=== PATIENT | male | born 1940 | race Caucasian/White ===

== ENCOUNTER 2019-11-19 21:42 | Inpatient (IN) | payer MEDICARE ==
[~2019-11-19] VITALS: Ht 182.9 cm; Wt 117.2 kg
[2019-11-19 22:00] VITALS: BP 163/98
[2019-11-19] MEDS: AMIODARONE 450 MG in IV DEXTROSE 5% 250 ML IV PRN (22:27)
--- NOTE | 2019-11-19 22:30 | NUR ---
Patient arrived to room approx 2145, Patient walked to bed from EMS [facility]. Patient AOX4, able to orient to room and call light. Patient brought home meds with, meds reconciled by auditor in charge and sent down to pharmacy. Home meds restarted per Dr. Lopez. Patient able to answer admission questions Loading dose of amiodarone given at [facility], orders given to this RN from Dr. Garcia to continue amiodarone infusion per protocol. Patient to also be NPO at midnight. Patient agrees with plan of care. Will continue to monitor.
[2019-11-19] MEDS ORDERED: TAMS0.4C97 PO (23:03)
[2019-11-19] MEDS ORDERED: ATOR20TA58 PO (23:03)
[2019-11-19] MEDS ORDERED: POTA10TA12 PO (23:03)
[2019-11-19] MEDS ORDERED: SITA50TA PO (23:03)
[2019-11-19] MEDS ORDERED: AMLO10TA8 PO (23:03)
[2019-11-19] MEDS ORDERED: LISI1TAB20 PO (23:03)
[2019-11-19] MEDS ORDERED: METF10007 PO (23:03)
[2019-11-20] VITALS (13 sets, daily range): BP systolic 113–166; BP diastolic 69–97
[2019-11-20 03:54] LABS: BASO % 1 % (0-3); EOS # 0.2 x10^3/uL (0.0-0.7); EOS % 3 % (0-3); HEMATOCRIT 38.9 % (39.0-53.0); HEMOGLOBIN 13.4 g/dL (13.0-17.5); LYMPH # 2.2 x10^3/uL (1.0-4.8); LYMPH % 28 % (24-48); MEAN CORPUSCULAR HEMOGLOBIN 31 pg (25-35); MEAN CORPUSCULAR HGB CONC 34 g/dL (31-37); MEAN CORPUSCULAR VOLUME 90 fL (79-100); MONO # 0.6 x10^3/uL (0.0-1.1); MONO % 8 % (0-9); NEUT # 4.8 x10^3/uL (1.8-7.7); NEUT % 62 % (31-73); PLATELET COUNT 223 x10^3/uL (140-400); RED BLOOD COUNT 4.33 x10^6/uL (4.30-5.70); RED CELL DISTRIBUTION WIDTH 14.3 % (11.5-14.5); WHITE BLOOD COUNT 7.8 x10^3/uL (4.0-11.0)
[2019-11-20 05:00] LABS: ALBUMIN 3.3 g/dL (3.4-5.0); CALCIUM 8.4 mg/dL (8.5-10.1); GFR 72.5; MAGNESIUM 1.5 mg/dL (1.8-2.4); POTASSIUM 3.4 mmol/L (3.5-5.1); TOTAL BILIRUBIN 0.9 mg/dL (0.2-1.0); TOTAL PROTEIN 6.5 g/dL (6.4-8.2)
[2019-11-20] MEDS ORDERED: HEPARIN for IV BOLUS 10,000 UNIT/10 ML VIAL. IV PRN (05:30)
[2019-11-20] MEDS ORDERED: HEPARIN 25,000UTS/250ML PREMIX 250 ML IV PRN (05:30)
[2019-11-20] MEDS ORDERED: ANTI-COAG MONITOR BY PHARMACY. MC PRN (05:30)
--- NOTE | 2019-11-20 06:30 | NUR ---
Dr. Garcia informed of elevated troponin this AM. Orders received to start heparin gtt protocol. Also informed this RN to plan for patient to go to hemodialysis lab technician today. This RN discussed with patient about elevated troponin and about hemodialysis lab technician. Patient agrees with plan of care.
[2019-11-20] MEDS: AMIODARONE 450 MG in IV DEXTROSE 5% 250 ML IV PRN (07:15)
--- NOTE | 2019-11-20 07:43 | PDOC1 ---
History and Physical Date of Admission Date of Admission DATE: 11/20/19 TIME: 07:43 Identification/Chief Complaint Chief Complaint Sweating Source Source: Patient History of Present Illness History of Present Illness Mr Avina is a 79 yo M w/ PMHx Diabetes, High Cholesterol, Hypertension, obesity, BPH, JONE on CPAP who presents for evaluation of sudden onset of sweats and weakness about 1 hour prior to arrival at 1700 on 11/19/2019 to [facility] ED. Noted with a rapid heart rate in the 190s on arrival. However he did not feel any palpitations. Patient had worsening sweats shortly after arrival and shortness of air. His initial blood pressure was essentially normal but then dropped to 80s over palp. Patient was moved to the resuscitation room and pads were placed on patient. There was no altered level of consciousness. Patient does not have a history of any prior heart rhythm problems and does not have a pacemaker. Patient does not have a history of prior myocardial infarction. Patient was in moderate distress on arrival. Labs significant for WBC 9.2, Hb 14.8, Platelets 282, Na 139, K 3.9, BUN 23, Cr 1.3, Ca 9.4, Glucose 144. Trop < 0.0017. EKG interpreted by ED physician as ventricular tachycardia. 1850 patient was synchronized cardioverted with 100 J. Pads were placed prior to the procedure. Patient had a tachycardia that was running a rate up to 190s wide-complex (VT). Blood pressure was initially stable with a drop to 80s over palp. After 1 discharge the rhythm improved to a sinus tach rate 101. Patient had multiple premature complexes and pauses prior to the cardioversion procedure After cardioversion EKG with sinus rhythm rate 100 with a wide-complex QRS complex 3rd EKG normalized sinus rhythm again with persistent wide QRS, there is a nonspecific intraventricular block present, not STEMI CXR no acute process. Saw [employer] contacted by ED, started on amiodarone and transferred to [facility] ICU for further care. Troponin on arrival was 4.7, Mg 1.5, K 3.4. He notes he was awake throughout cardioversion process. He notes his diabetes is well controlled, A1c was 7 6 months ago and 6.5 about 3 months ago. Past Medical History Cardiovascular: HTN, Hyperlipidemia Renal/: Benign prostatic enlarg. 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 Social History Smoke: No ALCOHOL: none Drugs: None Current Medications Current Medications Current Medications Amiodarone HCl 450 mg/Dextrose 259 ml @ 0 mls/hr CONT PRN IV SEE I/O RECORD Last administered on 11/20/19at 07:15; Start 11/19/19 at 22:00; Stop 11/20/19 at 21:59 Amlodipine Besylate (Norvasc) 10 mg DAILY PO ; Start 11/20/19 at 09:00 Atorvastatin Calcium (Lipitor) 20 mg HS PO ; Start 11/20/19 at 21:00 Potassium Chloride (Klor-Con) 20 meq DAILY PO ; Start 11/20/19 at 09:00 Tamsulosin HCl (Flomax) 0.4 mg HS PO ; Start 11/20/19 at 21:00 Lisinopril (Prinivil) 20 mg DAILY PO ; Start 11/20/19 at 09:00 Metformin HCl (Glucophage) 1,000 mg BIDWMEALS PO ; Start 11/20/19 at 08:00; Stop 11/20/19 at 07:42; Status DC Linagliptin (Tradjenta) 5 mg DAILY PO ; Start 11/20/19 at 09:00 Hydrochlorothiazide (Hydrodiuril) 25 mg DAILY PO ; Start 11/20/19 at 09:00 Heparin Sodium/ Dextrose 250 ml @ 14.532 mls/ hr CONT PRN IV PER PROTOCOL Last administered on 11/20/19at 05:40; Start 11/20/19 at 05:30 Heparin Sodium (Porcine) (Heparin Sodium) 3,050 unit PRN Q6HRS PRN IV FOR UFH LEVEL LESS THAN 0.2; Start 11/20/19 at 05:30 Info (Anti-Coagulation Monitoring By Pharmacy) 1 each PRN DAILY PRN MC SEE COMMENTS; Start 11/20/19 at 05:30 Magnesium Sulfate 100 ml @ 25 mls/hr 1X ONCE IV ; Start 11/20/19 at 07:45; Stop 11/20/19 at 11:44; Status UNV Potassium Chloride/Water 100 ml @ 100 mls/hr Q1H IV ; Start 11/20/19 at 07:45; Stop 11/20/19 at 09:44; Status UNV Active Scripts Active Reported Januvia (Sitagliptin Phosphate) 50 Mg Tablet 1 Tab PO DAILY Metformin Hcl 1,000 Mg Tablet 1,000 Mg PO BID Klor-Con M10 (Potassium Chloride) 10 Meq Tab.er.prt 2 Tab PO DAILY 30 Days Lisinopril-Hctz 20-25 Mg Tab (Lisinopril/Hydrochlorothiazide) 1 Each Tablet 1 Tab PO DAILY Amlodipine Besylate 10 Mg Tablet 10 Mg PO DAILY Atorvastatin Calcium 20 Mg Tablet 1 Tab PO HS Flomax (Tamsulosin Hcl) 0.4 Mg Cap.er.24h 1 Cap PO HS Allergies Allergies: Coded Allergies: No Known Drug Allergies (Unverified , 11/19/19) ROS General: YES: Fatigue, Malaise; No: Chills, Night Sweats, Appetite, Other PSYCHOLOGICAL ROS: No: Anxiety, Behavioral Disorder, Concentration difficultie, Decreased libido, Depression, Disorientation, Hallucinations, Hostility, Irritablity, Memory difficulties, Mood Swings, Obsessive thoughts, Physical abuse, Sexual abuse, Sleep disturbances, Suicidal ideation, Other Eyes: No Blurry vision, No Decreased vision, No Double vision, No Dry eyes, No Excessive tearing, No Eye Pain, No Itchy Eyes, No Loss of vision, No Photophobia, No Scotomata, No Uses contacts, No Uses glasses, No Other HEENT: No: Heacaches, Visual Changes, Hearing change, Nasal congestion, Nasal discharge, Oral lesions, Sinus pain, Sore Throat, Epistaxis, Sneezing, Snoring, Tinnitus, Vertigo, Vocal changes, Other ALLERGY AND IMMUNOLOGY: No: Hives, Insect Bite Sensitivity, Itchy/Watery Eyes, Nasal Congestion, Post Nasal Drip, Seasonal Allergies, Other Hematological and Lymphatic: No: Bleeding Problems, Blood Clots, Blood Transfusions, Brusing, Night Sweats, Pallor, Swollen Lymph Nodes, Other ENDOCRINE: No: Breast Changes, Galactorrhea, Hair Pattern Changes, Hot Flashes, Malaise/lethargy, Mood Swings, Palpitations, Polydipsia/polyuria, Skin Changes, Temperature Intolerance, Unexpected Weight Changes, Other Breast: No New/Changing Breast Lumps, No Nipple changes, No Nipple discharge, No Other Respiratory: No: Cough, Hemoptysis, Orthopnea, Pleuritic Pain, Shortness of breath, SOB with excertion, Sputum Changes, Stridor, Tachypnea, Wheezing, Other Cardiovascular: No Chest Pain, No Palpitations, No Orthopnea, No Paroxysmal Noc. Dyspnea, No Edema, No Lt Headedness, No Other Gastrointestinal: No Nausea, No Vomiting, No Abdominal Pain, No Diarrhea, No Constipation, No Melena, No Hematochezia, No Other Genitourinary: No Dysuria, No Frequency, No Incontinence, No Hematuria, No Retention, No Discharge, No Urgency, No Pain, No Flank Pain, No Other, No , No , No , No , No , No , No Musculoskeletal: No Gait Disturbance, No Joint Pain, No Joint Stiffness, No Joint Swelling, No Muscle Pain, No Muscular Weakness, No Pain In:, No Swelling In:, No Other Neurological: No Behavorial Changes, No Bowel/Bladder ControlChng, No Confusion, No Dizziness, No Gait Disturbance, No Headaches, No Impaired Coord/balance, No Memory Loss, No Numbness/Tingling, No Seizures, No Speech Problems, No Tremors, No Visual Changes, No Weakness, No Other Skin: No Dry Skin, No Eczema, No Hair Changes, No Lumps, No Mole Changes, No Mottling, No Nail Changes, No Pruritus, No Rash, No Skin Lesion Changes, No Other, No Acne Physical Exam General: Alert, Oriented X3, Cooperative, No acute distress HEENT: Atraumatic, PERRLA, EOMI, Mucous membr. moist/pink Lungs: Clear to auscultation, Normal air movement Heart: S1S2, RRR, no thrills, no rubs Abdomen: Normal bowel sounds, Soft, No tenderness, No hepatosplenomegaly, No masses Rectal Exam: not examined Extremities: No clubbing, No cyanosis, No edema, Normal pulses, No tenderness/swelling Skin: No rashes, No breakdown, No significant lesion Neuro: Normal gait, Normal speech, Strength at 5/5 X4 ext, Normal tone, Sensation intact, Cranial nerves 3-12 NL, Reflexes 2+ Psych/Mental Status: Mental status NL, Mood NL Vitals Vitals Vital Signs Date Time Temp Pulse Resp B/P (MAP) Pulse Ox O2 Delivery O2 Flow Rate FiO2 11/20/19 07:00 67 10 166/97 (120) 97 Nasal Cannula 2.0 11/20/19 03:00 98.3 98.3 Labs Labs Laboratory Tests Test 11/20/19 03:10 White Blood Count 7.8 x10^3/uL (4.0-11.0) Red Blood Count 4.33 x10^6/uL (4.30-5.70) Hemoglobin 13.4 g/dL (13.0-17.5) Hematocrit 38.9 % (39.0-53.0) Mean Corpuscular Volume 90 fL (79-100) Mean Corpuscular Hemoglobin 31 pg (25-35) Mean Corpuscular Hemoglobin Concent 34 g/dL (31-37) Red Cell Distribution Width 14.3 % (11.5-14.5) Platelet Count 223 x10^3/uL (140-400) Neutrophils (%) (Auto) 62 % (31-73) Lymphocytes (%) (Auto) 28 % (24-48) Monocytes (%) (Auto) 8 % (0-9) Eosinophils (%) (Auto) 3 % (0-3) Basophils (%) (Auto) 1 % (0-3) Neutrophils # (Auto) 4.8 x10^3/uL (1.8-7.7) Lymphocytes # (Auto) 2.2 x10^3/uL (1.0-4.8) Monocytes # (Auto) 0.6 x10^3/uL (0.0-1.1) Eosinophils # (Auto) 0.2 x10^3/uL (0.0-0.7) Basophils # (Auto) 0.0 x10^3/uL (0.0-0.2) Sodium Level 140 mmol/L (136-145) Potassium Level 3.4 mmol/L (3.5-5.1) Chloride Level 101 mmol/L (98-107) Carbon Dioxide Level 30 mmol/L (21-32) Anion Gap 9 (6-14) Blood Urea Nitrogen 19 mg/dL (8-26) Creatinine 1.0 mg/dL (0.7-1.3) Estimated GFR (Cockcroft-Gault) 72.5 BUN/Creatinine Ratio 19 (6-20) Glucose Level 127 mg/dL (70-99) Calcium Level 8.4 mg/dL (8.5-10.1) Magnesium Level 1.5 mg/dL (1.8-2.4) Total Bilirubin 0.9 mg/dL (0.2-1.0) Aspartate Amino Transf (AST/SGOT) 33 U/L (15-37) Alanine Aminotransferase (ALT/SGPT) 23 U/L (16-63) Alkaline Phosphatase 66 U/L (46-116) Troponin I Quantitative 4.703 ng/mL (0.000-0.055) Total Protein 6.5 g/dL (6.4-8.2) Albumin 3.3 g/dL (3.4-5.0) Albumin/Globulin Ratio 1.0 (1.0-1.7) Laboratory Tests Test 11/20/19 03:10 White Blood Count 7.8 x10^3/uL (4.0-11.0) Red Blood Count 4.33 x10^6/uL (4.30-5.70) Hemoglobin 13.4 g/dL (13.0-17.5) Hematocrit 38.9 % (39.0-53.0) Mean Corpuscular Volume 90 fL (79-100) Mean Corpuscular Hemoglobin 31 pg (25-35) Mean Corpuscular Hemoglobin Concent 34 g/dL (31-37) Red Cell Distribution Width 14.3 % (11.5-14.5) Platelet Count 223 x10^3/uL (140-400) Neutrophils (%) (Auto) 62 % (31-73) Lymphocytes (%) (Auto) 28 % (24-48) Monocytes (%) (Auto) 8 % (0-9) Eosinophils (%) (Auto) 3 % (0-3) Basophils (%) (Auto) 1 % (0-3) Neutrophils # (Auto) 4.8 x10^3/uL (1.8-7.7) Lymphocytes # (Auto) 2.2 x10^3/uL (1.0-4.8) Monocytes # (Auto) 0.6 x10^3/uL (0.0-1.1) Eosinophils # (Auto) 0.2 x10^3/uL (0.0-0.7) Basophils # (Auto) 0.0 x10^3/uL (0.0-0.2) Sodium Level 140 mmol/L (136-145) Potassium Level 3.4 mmol/L (3.5-5.1) Chloride Level 101 mmol/L (98-107) Carbon Dioxide Level 30 mmol/L (21-32) Anion Gap 9 (6-14) Blood Urea Nitrogen 19 mg/dL (8-26) Creatinine 1.0 mg/dL (0.7-1.3) Estimated GFR (Cockcroft-Gault) 72.5 BUN/Creatinine Ratio 19 (6-20) Glucose Level 127 mg/dL (70-99) Calcium Level 8.4 mg/dL (8.5-10.1) Magnesium Level 1.5 mg/dL (1.8-2.4) Total Bilirubin 0.9 mg/dL (0.2-1.0) Aspartate Amino Transf (AST/SGOT) 33 U/L (15-37) Alanine Aminotransferase (ALT/SGPT) 23 U/L (16-63) Alkaline Phosphatase 66 U/L (46-116) Troponin I Quantitative 4.703 ng/mL (0.000-0.055) Total Protein 6.5 g/dL (6.4-8.2) Albumin 3.3 g/dL (3.4-5.0) Albumin/Globulin Ratio 1.0 (1.0-1.7) Images Images CXR: The cardiomediastinal silhouette and pulmonary vessels are within normal limits. The lung and pleural spaces are clear. IMPRESSION: No acute cardiopulmonary process. VTE Prophylaxis Ordered VTE Prophylaxis Devices: No VTE Pharmacological Prophylaxi: Yes Assessment/Plan Assessment/Plan A/P: Diaphoresis - likely from cardiac arrhythmia. Improved. Ventricular tachycardia? - s/p cardioversion and amiodarone infusion. Improved symptomatically. Cont amio, consult cardiology. Replace lytes Hypokalemia - replace, goal > 4 Hypomagnesemia - will replace, goal > 2 Near syncope - Improved with heart rate control NSTEMI - elevated troponin possibly 2/2 cardioversion, hypotension with type II demand ischemia. Given his risk factors and arrhythmia a coronary angiography is indicated. Diabetes - cont januvia. Sliding scale. Well controlled per patient High Cholesterol - cont statin Hypertension - cont home meds Obesity - he is working on losing weight currently BPH - cont flomax JONE on CPAP needs new device FEN - NPO PPX - heparin FULL CODE Dispo - ICU for ventricular arrhythmia. CC time 45 minutes Justicifation of Admission Dx: Justifications for Admission: Justification of Admission Dx: Yes CHF: Cardiac Arrhythmias ELIANA VASQUEZ MD Nov 20, 2019 07:43
[2019-11-20 07:45] LABS: CHOLESTEROL/HDL RATIO 3.6
[2019-11-20] MEDS ORDERED: MAGNESIUM SULFATE 4GM 100 ML IV ONE (07:45)
[2019-11-20] MEDS ORDERED: metFORMIN 500 MG TABLET PO SCH (08:00)
[2019-11-20] MEDS: POTASSIUM CHLORIDE 10MEQ 100 ML IV SCH ×2 (08:00→09:00)
[2019-11-20] MEDS ORDERED: LABETALOL 20 MG/4 ML DISP.SYRIN. IVP PRN ×2 (08:30→09:00)
[2019-11-20] MEDS ORDERED: LISINOPRIL 20 MG TABLET PO SCH (09:00)
[2019-11-20] MEDS ORDERED: amLODIPine BESYLATE 10 MG TABLET PO SCH (09:00)
[2019-11-20] MEDS ORDERED: hydroCHLOROthiazide 25 MG TABLET PO SCH (09:00)
[2019-11-20] MEDS ORDERED: POTASSIUM CHLORIDE 10 MEQ TABLET.ER. PO SCH (09:00)
--- NOTE | 2019-11-20 09:00 | PDOC2 ---
MARGARET WONG LIVING NURSE 11/20/19 0900: CARDIAC CONSULT DATE OF CONSULT Date of Consult DATE: 11/20/19 TIME: 08:44 REASON FOR CONSULT Reason for Consult: Vtach REFERRING PHYSICIAN Referring Physician: John SOURCE Source: Chart review, Patient HISTORY OF PRESENT ILLNESS HISTORY OF PRESENT ILLNESS This is a pleasant 79 yo male admitted for complains of dizziness. Reports that he started getting dizzy and no vertigo yesterday afternoon. He has had the same episode 1 yr and 6 months ago but did not last long. This one stayed on and actually had some discomfort around his jaw and on the back of his arms. No naus ea, or diaphoresis. His went ahead and brought him to [facility] ED and over there he was noted to be tachycardic and suspected of VT. He did received synchronized CVN at 100 J x1 and was also having ectopies at that time. He also felt some indigestion but no direct chest pain. He typically walks his dog twice a day but no brisk walking nor any routine exercise. He has HTN, DM2, and HLP. He has no f urther recurrence since CVN of his ectopies and currently on amiodarone and heparin. No hx of CAD, VTE, recnt injuries or infection. His last stress test was was 15 yrs ago. PAST MEDICAL HISTORY Cardiovascular: HTN, Hyperlipidemia Pulmonary: No pertinent hx CENTRAL NERVOUS SYSTEM: Other (No pertinent history) GI: No pertinent hx Heme/Onc: No pertinent hx Hepatobiliary: No pertinent hx Psych: No pertinent hx Musculoskeletal: Osteoarthritis Rheumatologic: No pertinent hx Infectious disease: No pertinent hx ENT: No pertinent hx Renal/: Benign prostatic enlarg. Endocrine: Diabetes (2) Dermatology: Other (LE brownish hyperpigmentation) PAST SURGICAL HISTORY Past Surgical History: Other (vasectomy) FAMILY HISTORY Family History: Heart Disease (father and had a PPM) SOCIAL HISTORY Smoke: No ALCOHOL: none Drugs: None Lives: with Family CURRENT MEDICATIONS CURRENT MEDICATIONS Current Medications Medications (Trade) Dose Ordered Sig/Kamilla Route PRN Reason Start Time Stop Time Status Last Admin Dose Admin Amiodarone HCl 450 mg/Dextrose 259 ml @ 0 mls/hr CONT PRN IV SEE I/O RECORD 11/19/19 22:00 11/20/19 21:59 11/20/19 07:15 Heparin Sodium/ Dextrose 250 ml @ 14.532 mls/ hr CONT PRN IV PER PROTOCOL 11/20/19 05:30 11/20/19 05:40 Magnesium Sulfate 100 ml @ 25 mls/hr 1X ONCE IV 11/20/19 07:45 11/20/19 11:44 11/20/19 08:29 Labetalol HCl (Normodyne Iv Push) 20 mg PRN Q2HR PRN IVP HYPERTENSION 11/20/19 08:30 11/20/19 08:43 ALLERGIES ALLERGIES: Coded Allergies: No Known Drug Allergies (Unverified , 11/19/19) ROS Review of System 14 point ROS evaluated with pertinent positives noted per HPI PHYSICAL EXAM General: Alert, Oriented X3, Cooperative, No acute distress HEENT: Atraumatic, Mucous membr. moist/pink Lungs: Clear to auscultation, Normal air movement Heart: Regular rate (SR with LBBB) Abdomen: Soft, No tenderness Extremities: No cyanosis, No edema Skin: No breakdown, No significant lesion Neuro: Normal speech, Sensation intact Psych/Mental Status: Mental status NL, Mood NL MUSCULOSKELETAL: Osteoarthritic changes both hands VITALS/I&O VITALS/I&O: Vital Signs Date Time Temp Pulse Resp B/P (MAP) Pulse Ox O2 Delivery O2 Flow Rate FiO2 11/20/19 08:43 72 173/102 11/20/19 07:00 10 97 Nasal Cannula 2.0 11/20/19 03:00 98.3 98.3 I & O 11/19/19 11/19/19 11/20/19 15:00 23:00 07:00 Intake Total 201 ml Balance 201 ml LABS Lab: Laboratory Tests Test 11/20/19 03:10 White Blood Count 7.8 x10^3/uL (4.0-11.0) Red Blood Count 4.33 x10^6/uL (4.30-5.70) Hemoglobin 13.4 g/dL (13.0-17.5) Hematocrit 38.9 % (39.0-53.0) L Mean Corpuscular Volume 90 fL (79-100) Mean Corpuscular Hemoglobin 31 pg (25-35) Mean Corpuscular Hemoglobin Concent 34 g/dL (31-37) Red Cell Distribution Width 14.3 % (11.5-14.5) Platelet Count 223 x10^3/uL (140-400) Neutrophils (%) (Auto) 62 % (31-73) Lymphocytes (%) (Auto) 28 % (24-48) Monocytes (%) (Auto) 8 % (0-9) Eosinophils (%) (Auto) 3 % (0-3) Basophils (%) (Auto) 1 % (0-3) Neutrophils # (Auto) 4.8 x10^3/uL (1.8-7.7) Lymphocytes # (Auto) 2.2 x10^3/uL (1.0-4.8) Monocytes # (Auto) 0.6 x10^3/uL (0.0-1.1) Eosinophils # (Auto) 0.2 x10^3/uL (0.0-0.7) Basophils # (Auto) 0.0 x10^3/uL (0.0-0.2) Sodium Level 140 mmol/L (136-145) Potassium Level 3.4 mmol/L (3.5-5.1) L Chloride Level 101 mmol/L (98-107) Carbon Dioxide Level 30 mmol/L (21-32) Anion Gap 9 (6-14) Blood Urea Nitrogen 19 mg/dL (8-26) Creatinine 1.0 mg/dL (0.7-1.3) Estimated GFR (Cockcroft-Gault) 72.5 BUN/Creatinine Ratio 19 (6-20) Glucose Level 127 mg/dL (70-99) H Calcium Level 8.4 mg/dL (8.5-10.1) L Magnesium Level 1.5 mg/dL (1.8-2.4) L Total Bilirubin 0.9 mg/dL (0.2-1.0) Aspartate Amino Transferase (AST) 33 U/L (15-37) Alanine Aminotransferase (ALT) 23 U/L (16-63) Alkaline Phosphatase 66 U/L (46-116) Troponin I Quantitative 4.703 ng/mL (0.000-0.055) Total Protein 6.5 g/dL (6.4-8.2) Albumin 3.3 g/dL (3.4-5.0) L Albumin/Globulin Ratio 1.0 (1.0-1.7) Triglycerides Level 85 mg/dL (0-150) Cholesterol Level 127 mg/dL (0-200) LDL Cholesterol, Calculated 75 mg/dL (0-100) VLDL Cholesterol, Calculated 17 mg/dL (0-40) Non-HDL Cholesterol Calculated 92 mg/dL (0-129) HDL Cholesterol 35 mg/dL (40-60) L Cholesterol/HDL Ratio 3.6 Laboratory Tests 11/20/19 03:10 Laboratory Tests 11/20/19 03:10 ASSESSMENT/PLAN ASSESSMENT/PLAN 1. NSTEMI: compatible with ACS 2. Arrhythmia: appears to be wide complex tach with underlying LBBB, Post CVN. n o prior EKG for comparison. 3. HLP 4. HTN: labile 5. DM2 6. Obesity Recommendations 1. LHC today, risks and benefits discussed and agreeable to proceed 2. Heparin, ASA, amiodarone. 3. Labetolol PRN 4. Hold home metformin and HCTZ 5. Replace K and Mg. PADMINI CORDOVA MD 11/20/19 1424: CARDIAC CONSULT ASSESSMENT/PLAN ASSESSMENT/PLAN Patient seen and examined. Agree with ORTHOTICS TECHNICIAN's assessment and plan. Patient presented with unstable wide-complex tachycardia and was cardioverted at ED prior to being transferred to [facility] Review of initial EKG more consistent with SVT with intraventricular conduction delay since morphology of QRS complexes similar to baseline EKG. Doubt ventricular tachycardia. Continue amiodarone for now. Non-STEMI most likely demand ischemia secondary to rapid ventricular response and cardioversion. We will proceed with cardiac catheterization for more definitive evaluation. Continue heparin infusion per protocol. Thank you for your consultation. MARGARET WONG APRN Nov 20, 2019 09:00 PADMINI CORDOVA MD Nov 20, 2019 14:24
[2019-11-20] MEDS ORDERED: IOHEXOL 300 MG/ML 100ML VIAL. ONE ×2 (09:36→10:16)
[2019-11-20] MEDS ORDERED: LIDOCAINE 1% PF 2 ML VIAL. ONE (09:36)
--- NOTE | 2019-11-20 09:50 | NUR ---
SS following for discharge planning. SS reviewed pt chart and discussed with pt RN. Pt is from home with spouse and is currently on room air. Pt on Amiodarone and Heparin drip. Pt getting left heart cath today. SS will continue to follow for discharge planning.
[2019-11-20] MEDS ORDERED: NITROGLYCERIN 200 MCG/2 ML SYRINGE FOR CATH/VASC LAB. ONE (09:56)
[2019-11-20] MEDS ORDERED: HEPARIN for IV BOLUS 10,000 UNIT/10 ML VIAL. ONE (09:56)
[2019-11-20] MEDS ORDERED: MIDAZOLAM HCL/PF 5 MG/5 ML VIAL. ONE (09:56)
[2019-11-20] MEDS ORDERED: VERAPAMIL 5 MG/2 ML VIAL. ONE (09:56)
[2019-11-20] MEDS ORDERED: fentaNYL PF VIAL 100 MCG/2 ML VIAL ONE (09:56)
[2019-11-20] MEDS ORDERED: IV 1/2 NORMAL SALINE 1,000 ML IV SCH (10:34)
--- NOTE | 2019-11-20 10:34 | PDOC ---
MODERATE SEDATION ASSESSMENT RISKS/ALTERNATIVES Risks/Alternatives Risks and alternatives of this type of sedation and procedure discussed with: RISK/ALTERNATIVES: Patient H & P ON CHART H & P H & P on chart and reviewed for co-morbid conditions and appropriate labs. H&P ON CHART: Yes STATUS PREG STATUS ASSESSED: N/A MEDS/ALLERGIES REVIEWED Meds/Allergies Reviewed Medications and Allergies including time and route of recently administered narcotics and sedatives. MEDS/ALLERGIES REVIEWED: Yes ASA RATING ASA RATING: II AIRWAY ASSESSMENT Airway Assessment Airway patency, oral function limitations, presence of caps, crowns, dentures, partials, and ability to extend neck assessed. AIRWAY ASSESSMENT: Yes MALLAMPATI SCORE MALLAMPATI SCORE: II PRE-SEDATION ASSESSMENT PRE-SEDATION ASSESSMENT: Yes PADMINI CORDOVA MD Nov 20, 2019 10:34
[2019-11-20] MEDS ORDERED: NITROGLYCERIN SUBLINGUAL 0.4 MG BOTTLE OF 25. SL PRN (10:45)
[2019-11-20] MEDS ORDERED: IOHEXOL 300 MG/ML 100ML VIAL. IART ONE (10:45)
[2019-11-20] MEDS ORDERED: LIDOCAINE 1% PF 2 ML VIAL. INJ ONE (10:45)
[2019-11-20] MEDS ORDERED: VERAPAMIL 5 MG/2 ML VIAL. IART ONE (10:45)
[2019-11-20] MEDS ORDERED: fentaNYL PF VIAL 100 MCG/2 ML VIAL IV ONE (10:45)
[2019-11-20] MEDS ORDERED: MIDAZOLAM HCL/PF 5 MG/5 ML VIAL. IV ONE (10:45)
[2019-11-20] MEDS ORDERED: NITROGLYCERIN 200 MCG/2 ML SYRINGE FOR CATH/VASC LAB. IART ONE (10:45)
[2019-11-20] MEDS ORDERED: HEPARIN for IV BOLUS 10,000 UNIT/10 ML VIAL. IART ONE (10:45)
--- NOTE | 2019-11-20 11:50 | CARD ---
MR#: [id number] Date of Study: 11/20/2019 Ordering Physician: PADMINI CORDOVA, Referring Physician: PADMINI CORDOVA Tech: Marcie Quiles RT(R) APPROVED REPORT Technologist: Marcie Quiles RT(R) Nurse: Katya Pearson R.N. Procedure(s) performed: Left heart catheterization, selective coronary angiography and left ventricul ography via right transradial approach Sedation Time: 40 Minutes Dose: 68.65 Gycm2 Fluoro Time: 6.5 Minutes Contrast: 133 mL Omnipaque 300 INDICATION The indication(s) include : non-STEMI . CSHA Clinical Frailty Scale CS Clinical Frailty Scale: Managing Well Heart Failure Heart Failure: No PROCEDURE NARRATIVE After explaining the risks, benefits and alternative options, informed consent was obtained from car ent. Patient was brought to the cardiac [employer] Technician and right wrist was prepped and draped in the usual fashion after confirming a positive modified Nitin's test. Arterial access was obtained in the [facility] t radial artery and a 6 Swedish sheath was inserted. 6 Swedish Jovanny and 6 Swedish JL 3.5 catheters we re used to perform selective angiography of the right and left coronary arteries. 6 Swedish pigtail c atheter was used to perform left ventriculography. Patient tolerated the procedure well. Hemostasis was achieved using TR band. There were no immediate complications. The following findings were not ed. FINDINGS 1. Hemodynamics: Left ventricular end-diastolic pressure of 19 mmHg. No pullback gradient across th e aortic valve. 2. Left ventriculography: Severe left ventricular systolic dysfunction with ejection fraction estima parker at 25-30%. No significant mitral regurgitation seen. 3. Coronary angiography: a. The left main coronary artery arose from the left sinus of Valsalva, gave rise to the left anteri or descending and left circumflex arteries and did not show any significant stenosis. b. The left anterior descending artery did not show any significant stenosis. c. The left circumflex artery did not show any significant stenosis. d. The right coronary artery was a large and dominant vessel arising from the right sinus of Valsalv a that showed minimal luminal irregularities without any significant stenosis. Conclusion 1. No significant coronary disease. 2. Severe left ventricular systolic dysfunction with ejection fraction estimated at 25 to 30%. Recommendations Optimization of medical therapy for nonischemic cardiomyopathy. Repeat 2D echo in 3 months to evaluate the need for biventricular ICD implantation. Recommend LifeVest prior to discharge. Signed by : Padmini Cordova, Electronically Approved : 11/20/2019 11:50:18
[2019-11-20] MEDS ORDERED: POTASSIUM CHLORIDE 20 MEQ TABLET.ER. PO ONE (12:00)
[2019-11-20] MEDS ORDERED: FUROSEMIDE 40 MG TABLET. PO SCH (12:00)
[2019-11-20] MEDS ORDERED: amLODIPine BESYLATE 5 MG TABLET PO ONE (12:00)
[2019-11-20] MEDS: CARVEDILOL 6.25 MG TABLET. PO SCH ×2 (13:10→21:42)
[2019-11-20] MEDS: LINAGLIPTIN 5 MG TABLET PO SCH (13:12)
--- NOTE | 2019-11-20 13:54 | NUR ---
SS following up with discharge planning. Order for Life Vest received. SS phoned and faxed Life Vest order to Devi Ritter at [facility], ; fax [phone]. Devi reported that she would contact SS with further information. Pt's family also wanting new CPAP ordered to replace old CPAP. SS currently awaiting script for CPAP and will phone and fax referral once received. SS will continue to follow for discharge planning.
[2019-11-20] MEDS ORDERED: DEXTROSE 50% 25 GM / 50ML DISP.SYRIN. IV PRN (14:30)
--- NOTE | 2019-11-20 15:06 | NUR ---
SS following up with discharge planning. Script received for CPAP. SS contacted pt's spouse and discussed. Pt's spouse could not recall the name of the company pt's last CPAP was ordered through and stated that the CPAP is very old. SS phoned and faxed script and clinical to [facility], ; fax [phone]. SS currently awaiting to see if CPAP will be covered by Medicare and will contact pt's spouse with further information.
[2019-11-20] MEDS: INSULIN LISPRO 300 UNITS/3 ML VIAL. SQ SCH (17:00)
[2019-11-20] MEDS ORDERED: ATORVASTATIN CALCIUM 40 MG TABLET. PO SCH ×2 (21:00)
[2019-11-20] MEDS ORDERED: ATORVASTATIN CALCIUM 20 MG TABLET PO SCH (21:00)
[2019-11-20] MEDS ORDERED: TAMSULOSIN 0.4 MG CAP.ER.24H. PO SCH (21:00)
[2019-11-20] MEDS: AMIODARONE HCL 200 MG TABLET. PO SCH (21:42)
[2019-11-21 03:00] VITALS: BP 150/93
[2019-11-21 04:15] LABS: HEMATOCRIT 38.4 % (39.0-53.0); RED BLOOD COUNT 4.24 x10^6/uL (4.30-5.70); RED CELL DISTRIBUTION WIDTH 14.7 % (11.5-14.5); WHITE BLOOD COUNT 7.6 x10^3/uL (4.0-11.0)
[2019-11-21 07:00] VITALS: BP 126/77
--- NOTE | 2019-11-21 07:21 | PDOC ---
PROGRESS NOTES Chief Complaint Chief Complaint A/P: Diaphoresis - likely from cardiac arrhythmia. Improved. Ventricular tachycardia? - s/p cardioversion and amiodarone infusion. Improved symptomatically. Cont amio, consult cardiology. Replace lytes Hypokalemia - replace, goal > 4 Hypomagnesemia - will replace, goal > 2 Near syncope - Improved with heart rate control NSTEMI - elevated troponin possibly 2/2 cardioversion, hypotension with type II demand ischemia. Given his risk factors and arrhythmia a coronary angiography is indicated. Diabetes - cont januvia. Sliding scale. Well controlled per patient High Cholesterol - cont statin Hypertension - cont home meds Obesity - he is working on losing weight currently BPH - cont flomax JONE on CPAP needs new device FEN - Cardiac PPX - heparin FULL CODE Dispo - ICU for ventricular arrhythmia. History of Present Illness History of Present Illness Mr Avina is a 79 yo M w/ PMHx Diabetes, High Cholesterol, Hypertension, obesity, BPH, JONE on CPAP who presents for evaluation of sudden onset of sweats and weakness about 1 hour prior to arrival at 1700 on 11/19/2019 to [facility] ED. Noted with a rapid heart rate in the 190s on arrival. However he did not feel any palpitations. Patient had worsening sweats shortly after arrival and shortness of air. His initial blood pressure was essentially normal but then dropped to 80s over palp. Patient was moved to the resuscitation room and pads were placed on patient. There was no altered level of consciousness. Patient does not have a history of any prior heart rhythm problems and does not have a pacemaker. Patient does not have a history of prior myocardial infarction. Patient was in moderate distress on arrival. Labs significant for WBC 9.2, Hb 14.8, Platelets 282, Na 139, K 3.9, BUN 23, Cr 1.3, Ca 9.4, Glucose 144. Trop < 0.0017. EKG interpreted by ED physician as ventricular tachycardia. 1850 patient was synchronized cardioverted with 100 J. Pads were placed prior to the procedure. Patient had a tachycardia that was running a rate up to 190s wide-complex (VT). Blood pressure was initially stable with a drop to 80s over palp. After 1 discharge the rhythm improved to a sinus tach rate 101. Patient had multiple premature complexes and pauses prior to the cardioversion procedure After cardioversion EKG with sinus rhythm rate 100 with a wide-complex QRS complex 3rd EKG normalized sinus rhythm again with persistent wide QRS, there is a nonspecific intraventricular block present, not STEMI CXR no acute process. Kitchen Lead contacted by ED, started on amiodarone and transferred to [facility] ICU for further care. Troponin on arrival was 4.7, Mg 1.5, K 3.4. He notes he was awake throughout c ardioversion process. He notes his diabetes is well controlled, A1c was 7 6 months ago and 6.5 about 3 months ago. Overnight with wider complex on telemetry. Having life-vest fitting today for v- tach treatment. K 3.4, Mg 1.9 today. No SOB or CP. Vitals Vitals Vital Signs Date Time Temp Pulse Resp B/P (MAP) Pulse Ox O2 Delivery O2 Flow Rate FiO2 11/21/19 07:00 98.0 61 16 126/77 (93) 98 Room Air 98.0 11/20/19 10:39 2.0 Physical Exam General: Alert, Oriented X3, Cooperative, No acute distress Heart: Regular rate (SR with LBBB) Abdomen: Normal bowel sounds, Soft, No tenderness, No hepatosplenomegaly, No masses Extremities: No clubbing, No cyanosis, No edema, Normal pulses, No tenderness/swelling Skin: No rashes, No breakdown, No significant lesion Labs LABS Laboratory Tests Test 11/20/19 11:49 11/20/19 18:39 11/21/19 03:55 Heparin Anti-Xa Act, Unfractionated < 0.10 IU/mL (0.30-0.70) Glucose (Fingerstick) 164 mg/dL (70-99) White Blood Count 7.6 x10^3/uL (4.0-11.0) Red Blood Count 4.24 x10^6/uL (4.30-5.70) Hemoglobin 13.0 g/dL (13.0-17.5) Hematocrit 38.4 % (39.0-53.0) Mean Corpuscular Volume 91 fL (79-100) Mean Corpuscular Hemoglobin 31 pg (25-35) Mean Corpuscular Hemoglobin Concent 34 g/dL (31-37) Red Cell Distribution Width 14.7 % (11.5-14.5) Platelet Count 213 x10^3/uL (140-400) Comment Review of Relevant I have reviewed the following items andra (where applicable) has been applied. Labs Laboratory Tests Test 11/20/19 03:10 11/20/19 11:49 11/20/19 18:39 11/21/19 03:55 White Blood Count 7.8 x10^3/uL (4.0-11.0) 7.6 x10^3/uL (4.0-11.0) Red Blood Count 4.33 x10^6/uL (4.30-5.70) 4.24 x10^6/uL (4.30-5.70) Hemoglobin 13.4 g/dL (13.0-17.5) 13.0 g/dL (13.0-17.5) Hematocrit 38.9 % (39.0-53.0) 38.4 % (39.0-53.0) Mean Corpuscular Volume 90 fL (79-100) 91 fL (79-100) Mean Corpuscular Hemoglobin 31 pg (25-35) 31 pg (25-35) Mean Corpuscular Hemoglobin Concent 34 g/dL (31-37) 34 g/dL (31-37) Red Cell Distribution Width 14.3 % (11.5-14.5) 14.7 % (11.5-14.5) Platelet Count 223 x10^3/uL (140-400) 213 x10^3/uL (140-400) Neutrophils (%) (Auto) 62 % (31-73) Lymphocytes (%) (Auto) 28 % (24-48) Monocytes (%) (Auto) 8 % (0-9) Eosinophils (%) (Auto) 3 % (0-3) Basophils (%) (Auto) 1 % (0-3) Neutrophils # (Auto) 4.8 x10^3/uL (1.8-7.7) Lymphocytes # (Auto) 2.2 x10^3/uL (1.0-4.8) Monocytes # (Auto) 0.6 x10^3/uL (0.0-1.1) Eosinophils # (Auto) 0.2 x10^3/uL (0.0-0.7) Basophils # (Auto) 0.0 x10^3/uL (0.0-0.2) Sodium Level 140 mmol/L (136-145) Potassium Level 3.4 mmol/L (3.5-5.1) Chloride Level 101 mmol/L (98-107) Carbon Dioxide Level 30 mmol/L (21-32) Anion Gap 9 (6-14) Blood Urea Nitrogen 19 mg/dL (8-26) Creatinine 1.0 mg/dL (0.7-1.3) Estimated GFR (Cockcroft-Gault) 72.5 BUN/Creatinine Ratio 19 (6-20) Glucose Level 127 mg/dL (70-99) Calcium Level 8.4 mg/dL (8.5-10.1) Magnesium Level 1.5 mg/dL (1.8-2.4) Total Bilirubin 0.9 mg/dL (0.2-1.0) Aspartate Amino Transf (AST/SGOT) 33 U/L (15-37) Alanine Aminotransferase (ALT/SGPT) 23 U/L (16-63) Alkaline Phosphatase 66 U/L (46-116) Troponin I Quantitative 4.703 ng/mL (0.000-0.055) Total Protein 6.5 g/dL (6.4-8.2) Albumin 3.3 g/dL (3.4-5.0) Albumin/Globulin Ratio 1.0 (1.0-1.7) Triglycerides Level 85 mg/dL (0-150) Cholesterol Level 127 mg/dL (0-200) LDL Cholesterol, Calculated 75 mg/dL (0-100) VLDL Cholesterol, Calculated 17 mg/dL (0-40) Non-HDL Cholesterol Calculated 92 mg/dL (0-129) HDL Cholesterol 35 mg/dL (40-60) Cholesterol/HDL Ratio 3.6 Thyroid Stimulating Hormone (TSH) 1.684 uIU/mL (0.358-3.74) Heparin Anti-Xa Act, Unfractionated < 0.10 IU/mL (0.30-0.70) Glucose (Fingerstick) 164 mg/dL (70-99) Laboratory Tests Test 11/20/19 11:49 11/20/19 18:39 11/21/19 03:55 Heparin Anti-Xa Act, Unfractionated < 0.10 IU/mL (0.30-0.70) Glucose (Fingerstick) 164 mg/dL (70-99) White Blood Count 7.6 x10^3/uL (4.0-11.0) Red Blood Count 4.24 x10^6/uL (4.30-5.70) Hemoglobin 13.0 g/dL (13.0-17.5) Hematocrit 38.4 % (39.0-53.0) Mean Corpuscular Volume 91 fL (79-100) Mean Corpuscular Hemoglobin 31 pg (25-35) Mean Corpuscular Hemoglobin Concent 34 g/dL (31-37) Red Cell Distribution Width 14.7 % (11.5-14.5) Platelet Count 213 x10^3/uL (140-400) Medications Current Medications Amiodarone HCl 450 mg/Dextrose 259 ml @ 0 mls/hr CONT PRN IV SEE I/O RECORD Last administered on 11/20/19at 07:15; Start 11/19/19 at 22:00; Stop 11/20/19 at 21:59; Status DC Amlodipine Besylate (Norvasc) 10 mg DAILY PO ; Start 11/20/19 at 09:00; Stop 11/20/19 at 11:59; Status DC Atorvastatin Calcium (Lipitor) 20 mg HS PO ; Start 11/20/19 at 21:00; Stop 11/20/19 at 09:08; Status DC Potassium Chloride (Klor-Con) 20 meq DAILY PO ; Start 11/20/19 at 09:00; Stop 11/20/19 at 11:59; Status DC Tamsulosin HCl (Flomax) 0.4 mg HS PO Last administered on 11/20/19at 21:42; Start 11/20/19 at 21:00 Lisinopril (Prinivil) 20 mg DAILY PO ; Start 11/20/19 at 09:00; Stop 11/20/19 at 11:59; Status DC Metformin HCl (Glucophage) 1,000 mg BIDWMEALS PO ; Start 11/20/19 at 08:00; Stop 11/20/19 at 07:42; Status DC Linagliptin (Tradjenta) 5 mg DAILY PO Last administered on 11/20/19at 13:12; Start 11/20/19 at 09:00 Hydrochlorothiazide (Hydrodiuril) 25 mg DAILY PO ; Start 11/20/19 at 09:00; Stop 11/20/19 at 11:59; Status DC Heparin Sodium/ Dextrose 250 ml @ 14.532 mls/ hr CONT PRN IV PER PROTOCOL Last administered on 11/20/19at 05:40; Start 11/20/19 at 05:30 Heparin Sodium (Porcine) (Heparin Sodium) 3,050 unit PRN Q6HRS PRN IV FOR UFH LEVEL LESS THAN 0.2; Start 11/20/19 at 05:30 Info (Anti-Coagulation Monitoring By Pharmacy) 1 each PRN DAILY PRN MC SEE COMMENTS; Start 11/20/19 at 05:30 Magnesium Sulfate 100 ml @ 25 mls/hr 1X ONCE IV Last administered on 11/20/19at 08:29; Start 11/20/19 at 07:45; Stop 11/20/19 at 11:44; Status DC Potassium Chloride/Water 100 ml @ 100 mls/hr Q1H IV ; Start 11/20/19 at 08:00; Stop 11/20/19 at 09:59; Status DC Labetalol HCl (Normodyne Iv Push) 20 mg PRN Q2HR PRN IVP HYPERTENSION Last administered on 11/20/19at 08:43; Start 11/20/19 at 08:30; Stop 11/20/19 at 08:57; Status DC Labetalol HCl (Normodyne Iv Push) 20 mg PRN Q2HR PRN IVP HYPERTENSION; Start 11/20/19 at 09:00 Atorvastatin Calcium (Lipitor) 40 mg QHS PO Last administered on 11/20/19at 21:42; Start 11/20/19 at 21:00 Atorvastatin Calcium (Lipitor) 40 mg QHS PO ; Start 11/20/19 at 21:00; Status UNV Lidocaine HCl (Xylocaine-Mpf 1% 2ml Vial) 2 ml STK-MED ONCE .ROUTE ; Start 11/20/19 at 09:36; Stop 11/20/19 at 09:36; Status DC Iohexol (Omnipaque 300 Mg/ml) 100 ml STK-MED ONCE .ROUTE ; Start 11/20/19 at 09:36; Stop 11/20/19 at 09:36; Status DC Heparin Sodium/ Sodium Chloride 500 ml @ As Directed STK-MED ONCE .ROUTE ; Start 11/20/19 at 09:36; Stop 11/20/19 at 09:36; Status DC Fentanyl Citrate (Fentanyl 2ml Vial) 100 mcg STK-MED ONCE .ROUTE ; Start 11/20/19 at 09:56; Stop 11/20/19 at 09:56; Status DC Midazolam HCl (Versed) 5 mg STK-MED ONCE .ROUTE ; Start 11/20/19 at 09:56; Stop 11/20/19 at 09:56; Status DC Heparin Sodium (Porcine) (Heparin Sodium) 10,000 unit STK-MED ONCE .ROUTE ; Start 11/20/19 at 09:56; Stop 11/20/19 at 09:56; Status DC Verapamil HCl (Verapamil) 5 mg STK-MED ONCE .ROUTE ; Start 11/20/19 at 09:56; Stop 11/20/19 at 09:56; Status DC Nitroglycerin (Nitroglycerin) 200 mcg STK-MED ONCE .ROUTE ; Start 11/20/19 at 09:56; Stop 11/20/19 at 09:56; Status DC Iohexol (Omnipaque 300 Mg/ml) 100 ml STK-MED ONCE .ROUTE ; Start 11/20/19 at 10:16; Stop 11/20/19 at 10:16; Status DC Nitroglycerin (Nitroglycerin) 200 mcg 1X ONCE IART Last administered on 11/20/19at 10:38; Start 11/20/19 at 10:45; Stop 11/20/19 at 10:46; Status DC Verapamil HCl (Verapamil) 2.5 mg 1X ONCE IART Last administered on 11/20/19at 10:39; Start 11/20/19 at 10:45; Stop 11/20/19 at 10:46; Status DC Heparin Sodium (Porcine) (Heparin Sodium) 2,500 unit 1X ONCE IART Last administered on 11/20/19at 10:40; Start 11/20/19 at 10:45; Stop 11/20/19 at 10:46; Status DC Heparin Sodium/ Sodium Chloride (HEPARIN for ARTERIAL LINE FLUSH) 1,000 unit 1X ONCE IART Last administered on 11/20/19at 10:38; Start 11/20/19 at 10:45; Stop 11/20/19 at 10:46; Status DC Midazolam HCl (Versed) 5 mg 1X ONCE IV Last administered on 11/20/19at 10:40; Start 11/20/19 at 10:45; Stop 11/20/19 at 10:46; Status DC Fentanyl Citrate (Fentanyl 2ml Vial) 100 mcg 1X ONCE IV Last administered on 11/20/19at 10:39; Start 11/20/19 at 10:45; Stop 11/20/19 at 10:46; Status DC Iohexol (Omnipaque 300 Mg/ml) 100 ml 1X ONCE IART Last administered on 11/20/19at 10:38; Start 11/20/19 at 10:45; Stop 11/20/19 at 10:46; Status DC Lidocaine HCl (Xylocaine-Mpf 1% 2ml Vial) 2 ml 1X ONCE INJ Last administered on 11/20/19at 10:39; Start 11/20/19 at 10:45; Stop 11/20/19 at 10:46; Status DC Sodium Chloride 1,000 ml @ 60 mls/hr [id number] IV ; Start 11/20/19 at 10:34; Stop 11/20/19 at 13:31; Status DC Nitroglycerin (Nitrostat) 0.4 mg PRN Q5MIN PRN SL CHEST PAIN; Start 11/20/19 at 10:45 Amlodipine Besylate (Norvasc) 10 mg 1X ONCE PO Last administered on 11/20/19at 13:19; Start 11/20/19 at 12:00; Stop 11/20/19 at 12:05; Status DC Amiodarone HCl (Cordarone) 400 mg DAILY PO Last administered on 11/20/19at 21:42; Start 11/20/19 at 20:00 Carvedilol (Coreg) 6.25 mg BIDWMEALS PO Last administered on 11/20/19at 21:42; Start 11/20/19 at 12:00 Potassium Chloride (Klor-Con) 40 meq 1X ONCE PO Last administered on 11/20/19at 13:12; Start 11/20/19 at 12:00; Stop 11/20/19 at 12:05; Status DC Furosemide (Lasix) 40 mg DAILY PO ; Start 11/20/19 at 12:00 Insulin Human Lispro (HumaLOG) 0-5 UNITS TIDWMEALS SQ ; Start 11/20/19 at 17:00 Dextrose (Dextrose 50%-Water Syringe) 12.5 gm PRN Q15MIN PRN IV SEE COMMENTS; Start 11/20/19 at 14:30 Active Scripts Active Reported Januvia (Sitagliptin Phosphate) 50 Mg Tablet 1 Tab PO DAILY Metformin Hcl 1,000 Mg Tablet 1,000 Mg PO BID Klor-Con M10 (Potassium Chloride) 10 Meq Tab.er.prt 2 Tab PO DAILY 30 Days Lisinopril-Hctz 20-25 Mg Tab (Lisinopril/Hydrochlorothiazide) 1 Each Tablet 1 Tab PO DAILY Amlodipine Besylate 10 Mg Tablet 10 Mg PO DAILY Atorvastatin Calcium 20 Mg Tablet 1 Tab PO HS Flomax (Tamsulosin Hcl) 0.4 Mg Cap.er.24h 1 Cap PO HS Vitals/I & O Vital Sign - Last 24 Hours 11/20/19 11/20/19 11/20/19 11/20/19 08:00 08:43 10:30 10:39 Pulse 72 64 67 Resp 18 B/P (MAP) 173/102 144/81 Pulse Ox 96 O2 Delivery Room Air Nasal Cannula O2 Flow Rate 2.0 11/20/19 11/20/19 11/20/19 11/20/19 10:39 11:00 11:00 11:24 Temp 97.9 97.9 Pulse 62 62 Resp 16 13 14 B/P (MAP) 139/74 (95) 139/74 (95) Pulse Ox 96 95 96 95 O2 Delivery Nasal Cannula Room Air Room Air Room Air O2 Flow Rate 2.0 11/20/19 11/20/19 11/20/19 11/20/19 11:30 12:00 12:30 13:10 Pulse 62 61 60 61 Resp 15 11 17 B/P (MAP) 138/74 (95) 125/71 (89) 125/69 (87) 125/71 Pulse Ox 95 94 96 O2 Delivery Room Air Room Air Room Air 11/20/19 11/20/19 11/20/19 11/20/19 13:15 13:19 14:00 15:00 Pulse 66 67 66 63 Resp 14 15 8 B/P (MAP) 142/87 (105) 142/87 113/69 (84) 117/72 (87) Pulse Ox 96 91 93 O2 Delivery Room Air Room Air Room Air 11/20/19 11/20/19 11/20/19 11/20/19 19:00 20:00 21:42 21:42 Temp 97.8 97.8 Pulse 68 73 68 Resp 10 B/P (MAP) 118/76 (90) 134/77 118/76 Pulse Ox 97 O2 Delivery Room Air Room Air 11/20/19 11/21/19 11/21/19 23:00 03:00 07:00 Temp 98.1 97.8 98.0 98.1 97.8 98.0 Pulse 67 68 61 Resp 14 16 16 B/P (MAP) 140/84 (102) 150/93 (112) 126/77 (93) Pulse Ox 97 97 98 O2 Delivery Room Air Room Air Room Air Intake and Output 11/20/19 11/20/19 11/21/19 15:00 23:00 07:00 Intake Total 400 ml 260 ml Balance 400 ml 260 ml ELIANA VASQUEZ MD Nov 21, 2019 07:20
[2019-11-21 07:48] LABS: CALCIUM 8.2 mg/dL (8.5-10.1); CREATININE 1.2 mg/dL (0.7-1.3); GFR 58.7; MAGNESIUM 1.9 mg/dL (1.8-2.4); POTASSIUM 3.4 mmol/L (3.5-5.1)
[2019-11-21] MEDS: INSULIN LISPRO 300 UNITS/3 ML VIAL. SQ SCH ×3 (08:00→17:00)
[2019-11-21] MEDS ORDERED: POTASSIUM CHLORIDE 20 MEQ TABLET.ER. PO ONE (08:00)
[2019-11-21] MEDS ORDERED: POTASSIUM CHLORIDE 20 MEQ TABLET.ER. PO SCH ×2 (08:00→09:00)
[2019-11-21] MEDS: CARVEDILOL 6.25 MG TABLET. PO SCH ×2 (08:34→17:00)
[2019-11-21] MEDS: AMIODARONE HCL 200 MG TABLET. PO SCH (08:34)
[2019-11-21] MEDS: LINAGLIPTIN 5 MG TABLET PO SCH (08:34)
[2019-11-21] MEDS ORDERED: PERFLUTREN PROTEIN-A MICROSPHR 0.22 MG/ML 3 ML VIAL. IV ONE ×2 (08:45→15:00)
[2019-11-21] MEDS ORDERED: SACUBITRIL/VALSARTAN 24/26MG TABLET. PO SCH (09:00)
[2019-11-21] MEDS ORDERED: FUROSEMIDE 40 MG TABLET. PO SCH (09:00)
--- NOTE | 2019-11-21 09:18 | PDOC ---
MARGARET WONG SANITATION MANAGER 11/21/19 0918: CARDIO Progress Notes Date and Time Date of Service 11/21/2019 Time of Evaluation 0900 Subjective Subjective: No Chest Pain, No shortness of breath, No Palpitations Vitals Vitals Vital Signs Date Time Temp Pulse Resp B/P (MAP) Pulse Ox O2 Delivery O2 Flow Rate FiO2 11/21/19 08:36 70 128/70 11/21/19 08:00 Room Air 11/21/19 07:00 98.0 16 98 98.0 11/20/19 10:39 2.0 Weight Weight [ ] Input and Output Intake and Output Intake and Output 11/21/19 07:00 Intake Total 660 ml Balance 660 ml Intake Oral 660 ml # Voids 11 Laboratory Labs Laboratory Tests Test 11/20/19 11:49 11/20/19 18:39 11/21/19 03:05 11/21/19 03:55 Heparin Anti-Xa Act, Unfractionated < 0.10 IU/mL (0.30-0.70) Glucose (Fingerstick) 164 mg/dL (70-99) Sodium Level 138 mmol/L (136-145) Potassium Level 3.4 mmol/L (3.5-5.1) Chloride Level 102 mmol/L (98-107) Carbon Dioxide Level 32 mmol/L (21-32) Anion Gap 4 (6-14) Blood Urea Nitrogen 15 mg/dL (8-26) Creatinine 1.2 mg/dL (0.7-1.3) Estimated GFR (Cockcroft-Gault) 58.7 Glucose Level 138 mg/dL (70-99) Calcium Level 8.2 mg/dL (8.5-10.1) Magnesium Level 1.9 mg/dL (1.8-2.4) White Blood Count 7.6 x10^3/uL (4.0-11.0) Red Blood Count 4.24 x10^6/uL (4.30-5.70) Hemoglobin 13.0 g/dL (13.0-17.5) Hematocrit 38.4 % (39.0-53.0) Mean Corpuscular Volume 91 fL (79-100) Mean Corpuscular Hemoglobin 31 pg (25-35) Mean Corpuscular Hemoglobin Concent 34 g/dL (31-37) Red Cell Distribution Width 14.7 % (11.5-14.5) Platelet Count 213 x10^3/uL (140-400) Test 11/21/19 08:39 Glucose (Fingerstick) 128 mg/dL (70-99) Physical Exam HEENT: Neck Supple W Full Motion Chest: Symmetric LUNGS: Clear to Auscultation Heart: S1S2, RRR (SR without significant ectopies) Abdomen: Soft N/T Extremities: No Edema, No Calf Tenderness Neurology: alert, oriented, follow commands Other Exams right wrist arteriotomy site intact, no swelling or erythema, neurovascualr status to right hand intact Assessment Assessment 1. NSTEMI: due to tachyarrhythmia with underlying cardiomyopathy. LHC revealed no significnat CAD 2. Arrhythmia: appears to be wide complex tach with underlying LBBB, Post CVN. no prior EKG for comparison. 3. HLP 4. HTN: controlled 5. DM2 6. Obesity 7. NICM: EF at 25%, compensated Recommendations 1. Home with Coreg, amiodarone, low dose lasix/KCL and entresto(sample provided), DC HCTZ. Orthostatic readings prior to DC. 2. Continue home statin and DM meds. May resume metformin tomorrow PM. 3. Lifevest upon DC and will reeval EF in 3 months for QUARTZ ORIENTATOR-D consideration 4. BMP, Mg in 2 weeks. Awaiting TTE today 5. Follow up in office next month 6. Dietitian consult. CHF education per RN. 2L FR. 7. Incremental exercise program discussed. Justicifation of Admission Dx: Justifications for Admission: Justification of Admission Dx: Yes CHF: Cardiac Arrhythmias PADMINI CORDOVA MD 11/21/19 1710: CARDIO Progress Notes Assessment Assessment Patient seen and examined. Agree with BEATER ENGINEER's assessment and plan. Telemetry did not show any further arrhythmias. Cardiac catheterization yesterday did not show any significant coronary disease. Continue LifeVest and repeat 2D echo in 3 months to evaluate the need for biventricular ICD implantation. Continue current medical regimen for nonischemic cardiomyopathy. MARGARET WONG APRN Nov 21, 2019 09:18 PADMINI CORDOVA MD Nov 21, 2019 17:10
--- NOTE | 2019-11-21 09:39 | EKG ---
[facility] [address] [place] [address] Test Date: 2019-11-21 Test Time: 09:34:19 Pat Name: VLADISLAV CHUN Department: Room: 103 1 Gender: M Enrobing Machine Corder: [place] : 1940 Requested By: ELIANA VASQUEZ Order Number: [id number] Reading MD: Reed Fang Measurements Intervals [place] Rate: 66 P: 43 AL: 236 QRS: -36 QRSD: 192 T: 37 QT: 490 QTc: 516 Interpretive Statements SINUS RHYTHM PROLONGED AL INTERVAL ABNORMAL LEFT AXIS DEVIATION NON SPECIFIC INTRAVENTRICULAR BLOCK Electronically Signed On 11-23-2019 16:23:48 CDT by Reed Fang
[2019-11-21] MEDS ORDERED: MAGNESIUM SULFATE 1GM 100 ML IV ONE (10:00)
[2019-11-21 11:00] VITALS: BP 134/80
[2019-11-21] MEDS ORDERED: SACU1TAB PO (11:16)
[2019-11-21] MEDS ORDERED: POTA10TA6 PO (11:16)
[2019-11-21] MEDS ORDERED: ATOR40TA59 PO (11:16)
[2019-11-21] MEDS ORDERED: FURO40TA4 PO (11:16)
[2019-11-21] MEDS ORDERED: CARV6.2511 PO (11:16)
[2019-11-21] MEDS ORDERED: AMIO200T7 PO (11:16)
--- NOTE | 2019-11-21 12:52 | CARD ---
MR#: [id number] Date of Study: 11/21/2019 Ordering Physician: MARGARET WONG, Referring Physician: MARGARET WONG Tech: Jennie Melo [facility] APPROVED REPORT EXAM: Two-dimensional and M-mode echocardiogram with Doppler and color Doppler. Other Information Quality : Technically LimitedHR: 73bpm Rhythm : NSR INDICATION Dyspnea Echo Enhancing Agent Indication: Endocardial border delineation Agent/Amount Used: Optison 2mL RISK FACTORS Hypertension Obesity 2D DIMENSIONS RVDd3.4 (2.9-3.5cm)Left Atrium(2D)4.5 (1.6-4.0cm) IVSd1.5 (0.7-1.1cm)Aortic Root(2D)4.5 (2.0-3.7cm) LVDd5.6 (3.9-5.9cm)LVOT Diameter2.7 (1.8-2.4cm) PWd1.4 (0.7-1.1cm) Aortic Valve AoV Peak Cristian.154.1cm/sAoV VTI29.6cm AO Peak GR.9.5mmHgLVOT Peak Cristian.92.3cm/s AO Mean GR.5mmHgAVA (VMAX)3.43cm2 Mitral Valve MV E Xdluybds24.8cm/sMV DECEL [id number] MV A Cumzfcfg475.1cm/sE/A Ratio0.5 Pulmonary Valve PV Peak Elwneeov45.1cm/s Tricuspid Valve TR P. [id number]/sTR Peak Gr.27mmHg Pulmonary Vein S1 Fuvvafap92.9cm/sD2 Gsjgfort38.1cm/s PVa [id number] LEFT VENTRICLE The Left Ventricle is borderline dilated. There is mild concentric left ventricular hypertrophy. The systolic function is severely impaired. Estimated ejection fraction is 25%. There is severe global h ypokinesis of the left ventricle. RIGHT VENTRICLE The right ventricle is normal size. There is normal right ventricular wall thickness. The right ventr icular systolic function is normal. ATRIA The left atrium size is normal. The right atrium size is normal. The interatrial septum is intact wit h no evidence for an atrial septal defect or patent foramen ovale as noted on 2-D or Doppler imaging. AORTIC VALVE The aortic valve is calcified but opens well. Doppler and Color Flow revealed trace aortic regurgitat ion. There is no significant aortic valvular stenosis. MITRAL VALVE Mitral annular calcification is mild. Doppler and Color-flow revealed mild mitral regurgitation. TRICUSPID VALVE The tricuspid valve is normal in structure and function. Doppler and Color Flow revealed mild tricusp id regurgitation. PULMONIC VALVE The pulmonary valve is normal in structure and function. Mild pulmonic regurgitation. GREAT VESSELS Mildly dilated aorta PERICARDIAL EFFUSION There is no evidence of significant pericardial effusion. Critical Notification Critical Value: No <Conclusion> The Left Ventricle is borderline dilated. The systolic function is severely impaired. Estimated ejection fraction is 25%. There is severe global hypokinesis of the left ventricle. There is mild concentric left ventricular hypertrophy. Doppler and Color Flow revealed trace aortic regurgitation. There is no significant aortic valvular stenosis. Doppler and Color-flow revealed mild mitral regurgitation. Doppler and Color Flow revealed mild tricuspid regurgitation. Signed by : Reed Fang MD Electronically Approved : 11/21/2019 12:51:58
--- NOTE | 2019-11-21 12:56 | NUR ---
SS following up with discharge planning. SS reviewed pt chart and discussed with pt RN. Pt currently on room air. Pt fitted for Life Vest today. [facility], ; fax [phone], contacted SS and and confirmed that they received order for CPAP and are working with pt's spouse for any other additional information needed. Pt's RN notified. SS will continue to follow for discharge planning.
[2019-11-21 15:00] VITALS: BP 127/74
--- NOTE | 2019-11-21 15:09 | PDOC3 ---
Discharge Summary Visit Information Date of Admission: Nov 19, 2019 Date of Discharge: Nov 21, 2019 Admitting Diagnosis: Ventricular tachycardia Final Diagnosis Ventricular tachycardia Brief Hospital Course Allergies Allergies Coded Allergies Type Severity Reaction Last Updated Verified No Known Drug Allergies 11/19/19 No Vital Signs Vital Signs Date Time Temp Pulse Resp B/P (MAP) Pulse Ox O2 Delivery O2 Flow Rate FiO2 11/21/19 11:00 98.1 66 16 134/80 (98) 98 Room Air 98.1 11/20/19 10:39 2.0 Lab Results Laboratory Tests Test 11/20/19 03:10 11/20/19 11:49 11/20/19 18:39 11/21/19 03:05 White Blood Count 7.8 x10^3/uL (4.0-11.0) Red Blood Count 4.33 x10^6/uL (4.30-5.70) Hemoglobin 13.4 g/dL (13.0-17.5) Hematocrit 38.9 % (39.0-53.0) Mean Corpuscular Volume 90 fL (79-100) Mean Corpuscular Hemoglobin 31 pg (25-35) Mean Corpuscular Hemoglobin Concent 34 g/dL (31-37) Red Cell Distribution Width 14.3 % (11.5-14.5) Platelet Count 223 x10^3/uL (140-400) Neutrophils (%) (Auto) 62 % (31-73) Lymphocytes (%) (Auto) 28 % (24-48) Monocytes (%) (Auto) 8 % (0-9) Eosinophils (%) (Auto) 3 % (0-3) Basophils (%) (Auto) 1 % (0-3) Neutrophils # (Auto) 4.8 x10^3/uL (1.8-7.7) Lymphocytes # (Auto) 2.2 x10^3/uL (1.0-4.8) Monocytes # (Auto) 0.6 x10^3/uL (0.0-1.1) Eosinophils # (Auto) 0.2 x10^3/uL (0.0-0.7) Basophils # (Auto) 0.0 x10^3/uL (0.0-0.2) Sodium Level 140 mmol/L (136-145) 138 mmol/L (136-145) Potassium Level 3.4 mmol/L (3.5-5.1) 3.4 mmol/L (3.5-5.1) Chloride Level 101 mmol/L (98-107) 102 mmol/L (98-107) Carbon Dioxide Level 30 mmol/L (21-32) 32 mmol/L (21-32) Anion Gap 9 (6-14) 4 (6-14) Blood Urea Nitrogen 19 mg/dL (8-26) 15 mg/dL (8-26) Creatinine 1.0 mg/dL (0.7-1.3) 1.2 mg/dL (0.7-1.3) Estimated GFR (Cockcroft-Gault) 72.5 58.7 BUN/Creatinine Ratio 19 (6-20) Glucose Level 127 mg/dL (70-99) 138 mg/dL (70-99) Calcium Level 8.4 mg/dL (8.5-10.1) 8.2 mg/dL (8.5-10.1) Magnesium Level 1.5 mg/dL (1.8-2.4) 1.9 mg/dL (1.8-2.4) Total Bilirubin 0.9 mg/dL (0.2-1.0) Aspartate Amino Transf (AST/SGOT) 33 U/L (15-37) Alanine Aminotransferase (ALT/SGPT) 23 U/L (16-63) Alkaline Phosphatase 66 U/L (46-116) Troponin I Quantitative 4.703 ng/mL (0.000-0.055) Total Protein 6.5 g/dL (6.4-8.2) Albumin 3.3 g/dL (3.4-5.0) Albumin/Globulin Ratio 1.0 (1.0-1.7) Triglycerides Level 85 mg/dL (0-150) Cholesterol Level 127 mg/dL (0-200) LDL Cholesterol, Calculated 75 mg/dL (0-100) VLDL Cholesterol, Calculated 17 mg/dL (0-40) Non-HDL Cholesterol Calculated 92 mg/dL (0-129) HDL Cholesterol 35 mg/dL (40-60) Cholesterol/HDL Ratio 3.6 Thyroid Stimulating Hormone (TSH) 1.684 uIU/mL (0.358-3.74) Heparin Anti-Xa Act, Unfractionated < 0.10 IU/mL (0.30-0.70) Glucose (Fingerstick) 164 mg/dL (70-99) Test 11/21/19 03:55 11/21/19 08:39 11/21/19 12:30 White Blood Count 7.6 x10^3/uL (4.0-11.0) Red Blood Count 4.24 x10^6/uL (4.30-5.70) Hemoglobin 13.0 g/dL (13.0-17.5) Hematocrit 38.4 % (39.0-53.0) Mean Corpuscular Volume 91 fL (79-100) Mean Corpuscular Hemoglobin 31 pg (25-35) Mean Corpuscular Hemoglobin Concent 34 g/dL (31-37) Red Cell Distribution Width 14.7 % (11.5-14.5) Platelet Count 213 x10^3/uL (140-400) Glucose (Fingerstick) 128 mg/dL (70-99) 197 mg/dL (70-99) Laboratory Tests Test 11/20/19 18:39 11/21/19 03:05 11/21/19 03:55 11/21/19 08:39 Glucose (Fingerstick) 164 mg/dL (70-99) 128 mg/dL (70-99) Sodium Level 138 mmol/L (136-145) Potassium Level 3.4 mmol/L (3.5-5.1) Chloride Level 102 mmol/L (98-107) Carbon Dioxide Level 32 mmol/L (21-32) Anion Gap 4 (6-14) Blood Urea Nitrogen 15 mg/dL (8-26) Creatinine 1.2 mg/dL (0.7-1.3) Estimated GFR (Cockcroft-Gault) 58.7 Glucose Level 138 mg/dL (70-99) Calcium Level 8.2 mg/dL (8.5-10.1) Magnesium Level 1.9 mg/dL (1.8-2.4) White Blood Count 7.6 x10^3/uL (4.0-11.0) Red Blood Count 4.24 x10^6/uL (4.30-5.70) Hemoglobin 13.0 g/dL (13.0-17.5) Hematocrit 38.4 % (39.0-53.0) Mean Corpuscular Volume 91 fL (79-100) Mean Corpuscular Hemoglobin 31 pg (25-35) Mean Corpuscular Hemoglobin Concent 34 g/dL (31-37) Red Cell Distribution Width 14.7 % (11.5-14.5) Platelet Count 213 x10^3/uL (140-400) Test 11/21/19 12:30 Glucose (Fingerstick) 197 mg/dL (70-99) Brief Hospital Course Mr Avina is a 79 yo M w/ PMHx Diabetes, High Cholesterol, Hypertension, obesity, BPH, JONE on CPAP who presents for evaluation of sudden onset of sweats and weakness about 1 hour prior to arrival at 1700 on 11/19/2019 to [facility] ED. Noted with a rapid heart rate in the 190s on arrival. However he did not feel any palpitations. Patient had worsening sweats shortly after arrival and shortness of air. His initial blood pressure was essentially normal but then dropped to 80s over palp. Patient was moved to the resuscitation room and pads were placed on patient. There was no altered level of consciousness. Patient does not have a history of any prior heart rhythm problems and does not have a pacemaker. Patient does not have a history of prior myocardial infarction. Patient was in moderate distress on arrival. Labs significant for WBC 9.2, Hb 14.8, Platelets 282, Na 139, K 3.9, BUN 23, Cr 1.3, Ca 9.4, Glucose 144. Trop < 0.0017. EKG interpreted by ED physician as ventricular tachycardia. 1850 patient was synchronized cardioverted with 100 J. Pads were placed prior to the procedure. Patient had a tachycardia that was running a rate up to 190s wide-complex (VT). Blood pressure was initially stable with a drop to 80s over palp. After 1 discharge the rhythm improved to a sinus tach rate 101. Patient had multiple premature complexes and pauses prior to the cardioversion procedure After cardioversion EKG with sinus rhythm rate 100 with a wide-complex QRS complex 3rd EKG normalized sinus rhythm again with persistent wide QRS, there is a nonspecific intraventricular block present, not STEMI CXR no acute process. 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 Troponin on arrival was 4.7, Mg 1.5, K 3.4. He notes he was awake throughout cardioversion process. He notes his diabetes is well controlled, A1c was 7 6 months ago and 6.5 about 3 months ago. 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 No significant coronary disease. 2. Severe left ventricular systolic dysfunction with ejection fraction estimated at 25 to 30%. Echo confirmed: The Left Ventricle is borderline dilated. The systolic function is severely impaired. Estimated ejection fraction is 25%. There is severe global hypokinesis of the left ventricle. There is mild concentric left ventricular hypertrophy. Doppler and Color Flow revealed trace aortic regurgitation. There is no significant aortic valvular stenosis. Doppler and Color-flow revealed mild mitral regurgitation. Doppler and Color Flow revealed mild tricuspid regurgitation. Overnight with wider complex on telemetry. Having life-vest fitting today for v- tach treatment. K 3.4, Mg 1.9 today. No SOB or CP. QRS consistently > 180, under consideration for BIV AICD, will have close cardiology f/u. Ventricular tachycardia - s/p cardioversion and amiodarone infusion. Improved symptomatically. Cont amio, consult cardiology. Replace lytes. Life vest, amiodarone, manage CHF Severe systolic congestive heart failure - acute and new. Starte on statin, entresto, coreg, ASA. Diaphoresis - likely from cardiac arrhythmia. Improved. Hypokalemia - replace, goal > 4 Hypomagnesemia - will replace, goal > 2 Near syncope - Improved with heart rate control NSTEMI - elevated troponin possibly 2/2 cardioversion, hypotension with type II demand ischemia. Given his risk factors and arrhythmia a coronary angiography is indicated. Diabetes - cont januvia. Sliding scale. Well controlled per patient High Cholesterol - cont statin Hypertension - cont home meds Obesity - he is working on losing weight currently BPH - cont flomax JONE on CPAP needs new device Greater than 30 minutes spent on d/c Discharge Information Condition at Discharge: Improved Follow Up: Weeks (1) Disposition/Orders: D/C to Home Scheduled Amiodarone Hcl (Pacerone) 200 Mg Tablet, 400 MG PO DAILY for SVT for 30 Days, #60 Ref 2 Prescribed by: MARGARET WONG on 11/21/19 1116 Atorvastatin Calcium (Atorvastatin Calcium) 40 Mg Tablet, 40 MG PO QHS for HLP for 30 Days, #30 Ref 2 Prescribed by: MARGARET WONG on 11/21/19 1116 Carvedilol (Carvedilol ) 6.25 Mg Tablet, 6.25 MG PO BIDWMEALS for NICM for 30 Days, #60 Ref 2 Prescribed by: MARGARET WONG on 11/21/191115 Furosemide (Furosemide) 40 Mg Tablet, 20 MG PO DAILY for CHF for 30 Days, #15 Prescribed by: MARGARET WONG on 11/21/191115 Metformin Hcl (Metformin Hcl) 1,000 Mg Tablet, 1,000 MG PO BID for ANTI- DIABETIC, Ref 0 (Reported) Entered as Reported by: IRVING LEONARDO on 11/19/192302 Last Taken: Unknown Dose on 11/19/19 Last Action: Converted on 11/19/192305 by IRVING LEONARDO Potassium Chloride (Klor-Con M10) 10 Meq Tab.er.prt, 2 TAB PO DAILY for Electrolyte replacement for 30 Days, #60 Ref 0 (Reported) Entered as Reported by: IRVING LEONARDO on 11/19/192302 Last Taken: Unknown Dose on 11/19/19 Last Action: Continued on 11/19/192305 by IRVING LEONARDO Potassium Chloride (Klor-Con 10) 10 Meq Tablet.er, 1 TAB PO DAILY for CHF for 30 Days, #30 Ref 3 Prescribed by: MARGARET WONG on 11/21/191115 Sacubitril/Valsartan (Entresto 24 mg-26 mg Tablet) 1 Each Tablet, 1 TAB PO BID for NICM for 30 Days, #60 Ref 0 Prescribed by: MARGARET WONG on 11/21/191115 Sitagliptin Phosphate (Januvia) 50 Mg Tablet, 1 TAB PO DAILY for Diabetes, #30 Ref 5 (Reported) Entered as Reported by: IRVING LEONARDO on 11/19/192302 Last Taken: Unknown Dose on 11/19/19 Last Action: Converted on 11/19/192305 by IRVING LEONARDO Tamsulosin Hcl (Flomax) 0.4 Mg Cap.er.24h, 1 CAP PO HS for Prostate, #30 Ref 11 (Reported) Entered as Reported by: IRVING LEONARDO on 11/19/192302 Last Taken: Unknown Dose on 11/16/19 Last Action: Continued on 11/19/192305 by IRVING LEONARDO Discontinued Medications Amlodipine Besylate (Amlodipine Besylate) 10 Mg Tablet, 10 MG PO DAILY for HTN, (Reported) Entered as Reported by: IRVING LEONARDO on 11/19/192302 Last Taken: Unknown Dose on 11/19/19 Last Action: Continued on 11/19/192305 by IRVING LEONARDO Atorvastatin Calcium (Atorvastatin Calcium) 20 Mg Tablet, 1 TAB PO HS for Hyperlipidemia, #30 Ref 5 (Reported) Entered as Reported by: IRVING LEONARDO on 11/19/192302 Last Taken: Unknown Dose on 11/18/19 Last Action: Continued on 11/19/192305 by IRVING LEONARDO Lisinopril/Hydrochlorothiazide (Lisinopril-Hctz 20-25 Mg Tab) 1 Each Tablet, 1 TAB PO DAILY for HTN, #30 Ref 5 (Reported) Entered as Reported by: IRVING LEONARDO on 11/19/192302 Last Taken: Unknown Dose on 11/19/19 Last Action: Converted on 11/19/192305 by IRVING LEONARDO Justicifation of Admission Dx: Justifications for Admission: Justification of Admission Dx: Yes CHF: Cardiac Arrhythmias ELIANA VASQUEZ MD Nov 21, 2019 15:09
--- NOTE | 2019-11-22 15:03 | CARD ---
EXAM: Two-dimensional and M-mode echocardiogram with Doppler and color Doppler. Other Information Quality : Technically Limited HR: 73bpm Rhythm : NSR INDICATION Dyspnea Echo Enhancing Agent Indication: Endocardial border delineation Agent/Amount Used: Optison 2mL RISK FACTORS Hypertension Obesity 2D DIMENSIONS RVDd 3.4 (2.9-3.5cm) Left Atrium(2D) 4.5 (1.6-4.0cm) IVSd 1.5 (0.7-1.1cm) Aortic Root(2D) 4.5 (2.0-3.7cm) LVDd 5.6 (3.9-5.9cm) LVOT Diameter 2.7 (1.8-2.4cm) PWd 1.4 (0.7-1.1cm) Aortic Valve AoV Peak Cristian. 154.1cm/s AoV VTI 29.6cm AO Peak GR. 9.5mmHg LVOT Peak Cristian. 92.3cm/s AO Mean GR. 5mmHg MALORIE (VMAX) 3.43cm2 Mitral Valve MV E Velocity 53.8cm/s MV DECEL TIME 181ms MV A Velocity 118.1cm/s E/A Ratio 0.5 Pulmonary Valve PV Peak Velocity 99.1cm/s Tricuspid Valve TR P. Velocity 258cm/s TR Peak Gr. 27mmHg Pulmonary Vein S1 Velocity 56.9cm/s D2 Velocity 23.1cm/s PVa duration 131msec LEFT VENTRICLE The Left Ventricle is borderline dilated. There is mild concentric left ventricular hypertrophy. The systolic function is severely impaired. Estimated ejection fraction is 25%. There is severe global hypokinesis of the left ventricle. RIGHT VENTRICLE The right ventricle is normal size. There is normal right ventricular wall thickness. The right ventricular systolic function is normal. ATRIA The left atrium size is normal. The right atrium size is normal. The interatrial septum is intact with no evidence for an atrial septal defect or patent foramen ovale as noted on 2-D or Doppler imaging. AORTIC VALVE The aortic valve is calcified but opens well. Doppler and Color Flow revealed trace aortic regurgitation. There is no significant aortic valvular stenosis. MITRAL VALVE Mitral annular calcification is mild. Doppler and Color-flow revealed mild mitral regurgitation. TRICUSPID VALVE The tricuspid valve is normal in structure and function. Doppler and Color Flow revealed mild tricuspid regurgitation. PULMONIC VALVE The pulmonary valve is normal in structure and function. Mild pulmonic regurgitation. GREAT VESSELS Mildly dilated aorta PERICARDIAL EFFUSION There is no evidence of significant pericardial effusion. Critical Notification Critical Value: No <Conclusion> The Left Ventricle is borderline dilated. The systolic function is severely impaired. Estimated ejection fraction is 25%. There is severe global hypokinesis of the left ventricle. There is mild concentric left ventricular hypertrophy. Doppler and Color Flow revealed trace aortic regurgitation. There is no significant aortic valvular stenosis. Doppler and Color-flow revealed mild mitral regurgitation. Doppler and Color Flow revealed mild tricuspid regurgitation. Signed by : Niranjan Fang MD Electronically Approved : 11/21/2019 12:51:58 DICTATED and SIGNED BY: NIRANJAN FANG MD DATE: 11/21/19 1241 MTDD
== END 2019-11-21 17:30 | disposition home or self-care (01) | DRG 280 ==
LOC: 1 WEST ICU 21:42
PROVIDERS: ADMIT Internal Medicine; ATTEND Internal Medicine
PROC: 4A023N7 Measurement of Cardiac Sampling and Pressure, Left Heart, Percutaneous Approach (ICD-10-PCS; principal; 2019-11-20)
PROC: B2151ZZ Fluoroscopy of Left Heart using Low Osmolar Contrast (ICD-10-PCS; 2019-11-20)
PROC: B2111ZZ Fluoroscopy of Multiple Coronary Arteries using Low Osmolar Contrast (ICD-10-PCS; 2019-11-20)
PROC: 5A2204Z Restoration of Cardiac Rhythm, Single (ICD-10-PCS; 2019-11-21)
DX: I21.4 Non-ST elevation (NSTEMI) myocardial infarction (principal); I50.21 Acute systolic (congestive) heart failure; I47.2 Ventricular tachycardia; I42.8 Other cardiomyopathies; E11.9 Type 2 diabetes mellitus without complications; E66.9 Obesity, unspecified; E78.00 Pure hypercholesterolemia, unspecified; M19.90 Unspecified osteoarthritis, unspecified site; Z68.35 Body mass index [BMI] 35.0-35.9, adult; E78.5 Hyperlipidemia, unspecified; E83.42 Hypomagnesemia; E87.6 Hypokalemia; G47.33 Obstructive sleep apnea (adult) (pediatric); I11.0 Hypertensive heart disease with heart failure; N40.0 Benign prostatic hyperplasia without lower urinary tract symptoms; Z82.49 Family history of ischemic heart disease and other diseases of the circulatory system
CPT/HCPCS: 93458; C8929; 36415; 80048; 80053; 80061; 82962; 83735; 84443; 84484; 85025; 85027; 85520; 93005; 93306; 99152; 99153; C1769; C1892; J0282; J1644; J2250; J3010; J3475; J3490; J7060; Q9956; Q9967; G0378

== ENCOUNTER → 2019-12-05 | Outpatient (CLI) | payer MEDICARE ==
[2019-11-21 15:00] VITALS: BP 127/74
[~2019-12-05] MED LIST: AMIO200T7 PO; AMLO10TA8 PO; ATOR20TA58 PO; ATOR40TA59 PO; CARV6.2511 PO; FURO40TA4 PO; LISI1TAB20 PO; METF10007 PO; POTA10TA12 PO; POTA10TA6 PO; SACU1TAB PO; SITA50TA PO; TAMS0.4C97 PO
[2019-12-05 11:33] LABS: CALCIUM 8.9 mg/dL (8.5-10.1); CREATININE 1.5 mg/dL (0.7-1.3); GFR 45.4; MAGNESIUM 1.5 mg/dL (1.8-2.4); POTASSIUM 4.3 mmol/L (3.5-5.1)
== END | disposition home or self-care (01) ==
LOC: LAB 10:58
PROVIDERS: ATTEND Nurse Practitioner
DX: I50.9 Heart failure, unspecified (principal); I42.9 Cardiomyopathy, unspecified
CPT/HCPCS: 36415; 80048; 83735

== ENCOUNTER → 2020-03-13 | Outpatient (CLI) | payer MEDICARE ==
--- NOTE | 2020-03-14 08:37 | CARD ---
MR#: [id number] Date of Study: 03/13/2020 Ordering Physician: PADMINI CORDOVA, Referring Physician: PADMINI CORDOVA Tech: Janet Chauhan RDCS APPROVED REPORT EXAM: Two-dimensional and M-mode echocardiogram with Doppler and color Doppler. Other Information Quality : Good INDICATION Non-Ischemic Cardiomyopathy, Lifevest 2D DIMENSIONS RVDd4.2 (2.9-3.5cm)Left Atrium(2D)4.6 (1.6-4.0cm) IVSd1.4 (0.7-1.1cm)Aortic Root(2D)4.1 (2.0-3.7cm) LVDd5.1 (3.9-5.9cm)LVOT Diameter2.4 (1.8-2.4cm) PWd1.4 (0.7-1.1cm)LVDs4.5 (2.5-4.0cm) FS (%) 11.2 %SV29.9 ml LVEF(%)24.2 (>50%) Aortic Valve AoV Peak Cristian.158.9cm/sAoV VTI28.0cm AO Peak GR.10.1mmHgLVOT Peak Cristian.91.7cm/s AO Mean GR.5mmHgAVA (VMAX)2.54cm2 MALORIE (VTI)3.58py6EC P 1/2 Hvni177fl Mitral Valve MV E Lltlorge16.7cm/sMV DECEL BMTK288lm MV A Piiujnke782.7cm/sE/A Ratio0.6 LEFT VENTRICLE The left ventricle is normal size. There is mild concentric left ventricular hypertrophy. Left ventri anthony systolic function is severely impaired. The Ejection Fraction is 25-30%. There is severe global h ypokinesis of the left ventricle. Septal motion consistent with conduction abnormality. Tissue Dopple r imaging reveals moderate left ventricular diastolic dysfunction. RIGHT VENTRICLE The right ventricle is mildly dilated. The right ventricular systolic function is normal. ATRIA The left atrium is mildly dilated. The right atrium size is normal. The interatrial septum is intact with no evidence for an atrial septal defect or patent foramen ovale as noted on 2-D or Doppler imagi ng. AORTIC VALVE The aortic valve is calcified but opens well. Doppler and Color Flow revealed trace to mild aortic re gurgitation. There is no significant aortic valvular stenosis. MITRAL VALVE The mitral valve is mildly thickened. Mitral annular calcification is mild. There is no evidence of m itral valve prolapse. There is no mitral valve stenosis. Doppler and Color-flow revealed mild mitral regurgitation. TRICUSPID VALVE The tricuspid valve is normal in structure and function. Doppler and Color Flow revealed no tricuspid valve regurgitation noted. There is no tricuspid valve stenosis. PULMONIC VALVE The pulmonic valve is not well visualized. Doppler and Color Flow revealed mild pulmonic valvular reg urgitation. There is no pulmonic valvular stenosis. GREAT VESSELS The aortic root is mildly dilated at 4.1 cm. The ascending aorta is mildly dilated at 3.8 cm. The IVC is normal in size and collapses >50% with inspiration. PERICARDIAL EFFUSION There is no evidence of significant pericardial effusion. Critical Notification Critical Value: No <Conclusion> Left ventricle systolic function is severely impaired. The Ejection Fraction is 25-30%. There is severe global hypokinesis of the left ventricle. Septal motion consistent with conduction ab normality. The ascending aorta is mildly dilated at 3.8 cm. Signed by : Romario Sorensen, Electronically Approved : 03/14/2020 08:36:31
== END | disposition home or self-care (01) ==
LOC: ECHO 10:13
PROVIDERS: ATTEND Internal Medicine Cardiovascular Disease
DX: I08.8 Other rheumatic multiple valve diseases (principal); I42.9 Cardiomyopathy, unspecified
CPT/HCPCS: 93306

== ENCOUNTER → 2020-04-08 | Outpatient (CLI) | payer BC ==
[~2020-04-08] MED LIST changes: +AMIO200T6 PO; +AMLO-187 PO; -AMLO10TA8 PO; +ASPI-886 PO; +CARV3.1210 PO
== END ==
LOC: LAB 13:34
PROVIDERS: ATTEND Internal Medicine Cardiovascular Disease
DX: Z01.812 Encounter for preprocedural laboratory examination (principal); Z20.828 Contact with and (suspected) exposure to other viral communicable diseases; I42.9 Cardiomyopathy, unspecified
CPT/HCPCS: U0003

== ENCOUNTER 2020-04-11 10:12 | Observation (INO) | payer MEDICARE ==
[2020-04-11] VITALS (10 sets, daily range): BP systolic 113–140; BP diastolic 62–84
[~2020-04-11] VITALS: Ht 182.9 cm; Wt 110.0 kg
[~2020-04-11 10:12] MED LIST changes: -AMIO200T6 PO; -ASPI-886 PO; -CARV3.1210 PO; +HYDROmorphone 2 MG/ML VIAL IV PRN; +IV RINGERS,LACTATED 1000ML 1,000 ML IV SCH; +MORPHINE SULFATE 2 MG/ML VIAL. IV PRN; +ONDANSETRON PF 4 MG/2 ML VIAL. IV PRN; +PROCHLORPERAZINE 10 MG/2 ML VIAL. IV PRN; +fentaNYL PF VIAL 100 MCG/2 ML VIAL IV PRN
[2020-04-11] MEDS ORDERED: BACITRACIN 50,000 UNIT in IV NORMAL SALINE 250ML 250 ML IRR ONE (10:30)
[2020-04-11 10:45] LABS: HEMATOCRIT 37.3 % (39.0-53.0); HEMOGLOBIN 12.7 g/dL (13.0-17.5); RED BLOOD COUNT 3.88 x10^6/uL (4.30-5.70); RED CELL DISTRIBUTION WIDTH 14.6 % (11.5-14.5); WHITE BLOOD COUNT 6.3 x10^3/uL (4.0-11.0)
[2020-04-11 10:55] LABS: GFR 72.5; POTASSIUM 4.4 mmol/L (3.5-5.1)
--- NOTE | 2020-04-11 10:59 | EKG ---
[facility] [address] [place] [address] Test Date: 2020-04-11 Test Time: 10:55:30 Pat Name: VLADISLAV CHUN Department: Room: Gender: Respiratory Therapy Aide: SJ : 1940 Requested By: GE GARCIA Order Number: [id number] Reading MD: Ge Garcia Measurements Intervals [place] Rate: 61 P: 31 DE: 250 QRS: -41 QRSD: 194 T: 38 QT: 516 QTc: 521 Interpretive Statements SINUS RHYTHM PROLONGED DE INTERVAL ABNORMAL LEFT AXIS DEVIATION NON SPECIFIC INTRAVENTRICULAR BLOCK ABNORMAL ECG Electronically Signed On 04-15-2020 11:02:04 SECURITY DIRECTOR by Ge Garcia
[2020-04-11] MEDS ORDERED: AMIO200T6 PO (11:28)
[2020-04-11] MEDS ORDERED: ASPI-886 PO (11:28)
[2020-04-11] MEDS ORDERED: CARV3.1210 PO (11:28)
[2020-04-11] MEDS ORDERED: LIDOCAINE 2%/EPI 1:100,000 20 ML VIAL. IJ ONE (11:30)
[2020-04-11] MEDS ORDERED: LIDOCAINE 2%/EPI 1:100,000 20 ML VIAL. ONE (11:40)
[2020-04-11] MEDS ORDERED: IOHEXOL 300 MG/ML 100ML VIAL. ONE (11:40)
[2020-04-11 11:41] LABS: PROTHROMBIN TIME PATIENT 13.3 SEC (11.7-14.0)
[2020-04-11] MEDS ORDERED: KETAMINE HCL IN NACL, ISO-OSM 50 MG/5 ML SYRINGE ONE (12:00)
[2020-04-11] MEDS ORDERED: MIDAZOLAM HCL/PF 2 MG/2 ML VIAL. ONE (12:01)
[2020-04-11] MEDS ORDERED: fentaNYL PF VIAL 250 MCG/5 ML VIAL ONE (12:01)
[2020-04-11] MEDS ORDERED: CONTRAST GIVEN. MC PRN (13:30)
[2020-04-11] MEDS ORDERED: IOHEXOL 300 MG/ML 100ML VIAL. IART ONE (13:30)
[2020-04-11] MEDS ORDERED: oxyCODONE/APAP 5/325 1 TAB TABLET PO PRN (14:15)
--- NOTE | 2020-04-11 14:22 | CARD ---
MR#: [id number] Date of Study: 04/11/2020 Ordering Physician: PADMINI GARCIA, Referring Physician: PADMINI GARCIA, Tech: APPROVED REPORT EXAM Implantation of Medtronic biventricular implantable cardioverter defibrillator/cardiac resynchronizat ion therapy-defibrillator (ViVICD/MORTGAGE OPERATIONS MANAGER-D). Defibrillation thresholds measurement at the time of implantation. SEDATION ADMINISTERED BY ANESTHESIA FLUORO TIME: 12.7 MIN DOSE: 57.3 GYCM2 CONTRAST: 25CC OMNI 300 INDICATIONS Primary prevention of sudden cardiac and cardiac resynchronization therapy in a patient with ch ronic systolic heart failure/ischemic cardiomyopathy, LVEF 25 to 30% and cardiac dyssynchrony as evid enced by LBBB and QRS duration 192 ms. IMPLANTED DEVICES After explaining the risks, benefits and alternative options, informed consent was obtained from car ent. Patient was brought to the cardiac Hris Analyst and his left chest and shoulder were prepped and dr aped in the usual fashion. 30 cc of 2% lidocaine was infiltrated in the skin and subcutaneous tissue s for local anesthesia. An incision was made over the left infraclavicular fossa and using blunt dis section and cautery a pocket was created. Venous access was obtained in the left subclavian vein and 9 Martiniquais CS sheath was inserted. Contrast injections were performed within the right atrium using t he CASS2 catheter and the CS ostium was engaged. A 0.035 inch Glidewire was advanced to the coronary sinus and the sheath was advanced over it. Venogram was performed to identify the appropriate vein for placement of the left ventricular lead. The Glidewire was then advanced into the middle cardiac vein which was then exchanged over a 4 Martiniquais angled glide catheter to a 0.014 inch grand slam guidew adelia. A Medtronic quadripolar left ventricular lead model 464875, serial number [id number] was adva nced into the middle cardiac vein under fluoroscopy guidance. Venous access was again obtained in the left subclavian vein at 10.5 and 7 Martiniquais sheath inserted. A Medtronic bipolar active fixation right ventricular lead model 6947M 62, serial number [id number] as positioned in the right ventricular apex under fluoroscopy guidance. Subsequently, a Medtronic bi polar active fixation right atrial lead model 147009, serial number [id number] was positioned in the right atrial appendage under fluoroscopic guidance. The leads were secured into place and were georgie ched to a Medtronic biventricular ICD/MORTGAGE OPERATIONS MANAGER-D generator model [id number], serial number [id number]. This was placed in the pocket that was subsequently closed in 3 layers. Hemostasis was achieved using D- Stat. Ventricular fibrillation was then induced to check the defibrillation threshold. Patient did not con vert with 15 J shock therapy and had to be shocked at maximum output of 35 J. We induced ventricular fibrillation again and this time we were able to convert the patient with 25 J shock therapy. The l eft ventricular lead showed a impedance of 1013 ohms and a threshold of 1.2 V. Right ventricular raman d showed a sensing amplitude of 7.2 mV, impedance of 572 ohms and a threshold of 1.0 V. Right atrial lead showed a sensing amplitude of 1.8 mV, impedance of 604 ohms and a threshold of 1.4 V. Patient tolerated the procedure well. There were no immediate complications. CONCLUSION Successful implantation of Medtronic biventricular ICD/MORTGAGE OPERATIONS MANAGER-D for primary prevention of sudden cardiac and cardiac resynchronization therapy in a patient with chronic systolic heart failure, LVEF 2 5 to 30% and cardiac dyssynchrony as evidenced by QRS duration 192 ms. Defibrillation thresholds wer e measured at the time of implantation. Signed by : Padmini Garcia, Electronically Approved : 04/11/2020 14:22:15
--- NOTE | 2020-04-11 15:19 | RAD ---
EXAM: Chest, single view. HISTORY: Pacemaker placement. COMPARISON: None. FINDINGS: A frontal view of the chest is obtained. There is a cardiac pacemaker defibrillator with leads overlying expected position. No pneumothorax is seen. There is no infiltrate or pleural effusion. The cardiac silhouette is within normal limits for portable technique. IMPRESSION: Cardiac pacemaker defibrillator overlying expected position. No acute pulmonary finding. Electronically signed by: Joellen Grimes MD (04/11/2020 3:16 PM) [id number]
[2020-04-11] MEDS ORDERED: ATOR40TA59 PO (15:32)
[2020-04-11] MEDS ORDERED: DEXTROSE 50% 25 GM / 50ML DISP.SYRIN. IV PRN (15:45)
--- NOTE | 2020-04-11 15:47 | NUR ---
The patient, VLADISLAV CHUN, 79 y/o, M admitted by PADMINI CORDOVA MD, was given written information regarding hospital policies, unit procedures and contact persons. Valuables were checked and left at bedside with patient. took life vest home with her to return to company. Patient has no complaints of pain or SOB. Educated patient on left arm immobilizer and post procedure protocols. Patient verbalized understanding.
[2020-04-11] MEDS: CARVEDILOL 3.125 MG TABLET. PO SCH (18:25)
[2020-04-11] MEDS ORDERED: TAMSULOSIN 0.4 MG CAP.ER.24H. PO SCH (21:00)
[2020-04-11] MEDS ORDERED: ATORVASTATIN CALCIUM 40 MG TABLET. PO SCH (21:00)
[2020-04-11] MEDS ORDERED: AMIODARONE HCL 200 MG TABLET. PO SCH (21:00)
[2020-04-11] MEDS: SACUBITRIL/VALSARTAN 24/26MG TABLET. PO SCH (21:00)
[2020-04-12 03:40] VITALS: BP 116/66
[2020-04-12 07:12] VITALS: BP 130/70
[2020-04-12] MEDS: CARVEDILOL 3.125 MG TABLET. PO SCH (08:56)
[2020-04-12] MEDS: SACUBITRIL/VALSARTAN 24/26MG TABLET. PO SCH (08:56)
[2020-04-12] MEDS ORDERED: FUROSEMIDE 40 MG TABLET. PO SCH (09:00)
--- NOTE | 2020-04-12 10:09 | RAD ---
CHEST PA LATERAL INDICATION: Reason: 1 day post pacemaker / Spl. Instructions: / History: . COMPARISON STUDY: None. FINDINGS: Life Support Devices: Left pectoral ICD/pacemaker. Lungs: Normal lung volume. No focal airspace disease. Normal pulmonary vasculature. Pleura: No pleural effusion or pneumothorax. Heart and Mediastinum: Stable cardiomediastinal silhouette and great vessels. IMPRESSION: No pneumothorax. No consolidation. Electronically signed by: Nixon Velez MD (04/12/2020 10:06 AM) [id number]
[2020-04-12 11:00] VITALS: BP 142/86
--- NOTE | 2020-04-12 13:37 | NUR ---
Discharge Note: VLADISLAV CHUN [address] Discharge instructions and discharge home medications reviewed with Patient and a copy given. All questions have been answered and understanding verbalized. The following instructions and handouts were given: Post AICD dc education and cardiac diet. Told patient to follow up with Dr. Garcia's wound care nurse as scheduled. Discontinued iv line and catheter intact. Patient discharged to with
--- NOTE | 2020-04-12 14:26 | PDOC3 ---
Discharge Summary Visit Information Date of Admission: Apr 11, 2020 Date of Discharge: Apr 12, 2020 Admitting Diagnosis: Ischemic cardiomyopathy, cardiac dyssynchrony Final Diagnosis Ischemic cardiomyopathy, chronic systolic heart failure, cardiac dyssynchrony (ejection fraction 25 to 30%) Brief Hospital Course Allergies Allergies Coded Allergies Type Severity Reaction Last Updated Verified No Known Drug Allergies 11/19/19 No Vital Signs Vital Signs Date Time Temp Pulse Resp B/P (MAP) Pulse Ox O2 Delivery O2 Flow Rate FiO2 04/12/20 11:00 98.3 61 18 142/86 (104) 96 Room Air 98.3 Lab Results Laboratory Tests Test 04/11/20 10:35 04/12/20 08:10 White Blood Count 6.3 x10^3/uL (4.0-11.0) Red Blood Count 3.88 x10^6/uL (4.30-5.70) Hemoglobin 12.7 g/dL (13.0-17.5) Hematocrit 37.3 % (39.0-53.0) Mean Corpuscular Volume 96 fL (79-100) Mean Corpuscular Hemoglobin 33 pg (25-35) Mean Corpuscular Hemoglobin Concent 34 g/dL (31-37) Red Cell Distribution Width 14.6 % (11.5-14.5) Platelet Count 196 x10^3/uL (140-400) Prothrombin Time 13.3 SEC (11.7-14.0) Prothromb Time International Ratio 1.1 (0.8-1.1) Sodium Level 142 mmol/L (136-145) Potassium Level 4.4 mmol/L (3.5-5.1) Chloride Level 103 mmol/L (98-107) Carbon Dioxide Level 32 mmol/L (21-32) Anion Gap 7 (6-14) Blood Urea Nitrogen 23 mg/dL (8-26) Creatinine 1.0 mg/dL (0.7-1.3) Estimated GFR (Cockcroft-Gault) 72.5 Glucose Level 103 mg/dL (70-99) Calcium Level 9.0 mg/dL (8.5-10.1) Glucose (Fingerstick) 98 mg/dL (70-99) Laboratory Tests Test 04/12/20 08:10 Glucose (Fingerstick) 98 mg/dL (70-99) Brief Hospital Course The patient is a 79-year-old male with a history of an ischemic cardiomyopathy with an ejection fraction of 20 to 25% as well as cardiac dyssynchrony. Risks and benefits of a biventricular ICD/CRTD device were discussed with the patient and he agreed to proceed with implantation. The device was implanted without complications on 04/11/2020. The patient remained stable overnight. Chest x- rays post procedure and the next morning showed no acute changes and no pneumothorax. Interrogation of the device the day after implant showed normal functioning. The patient had no difficulties. He was discharged in stable condition and 04/12/2020. We will follow-up the patient with a telephone call in 2 days to arrange a wound check follow-up. Assessment Assessment Successful implantation of a biventricular ICD/CRTD. Discharge Information Condition at Discharge: Stable Follow Up: Weeks Disposition/Orders: D/C to Home Scheduled Amiodarone Hcl (Amiodarone Hcl) 200 Mg Tablet, 200 TAB PO HS for rx, #90 Ref 1 (Reported) Entered as Reported by: JARRELL WEIR on 04/11/201127 Last Taken: Unknown Dose on 04/10/20 Last Action: Continued on 04/11/201540 by Madhav Giraldo Aspirin (Aspirin Ec) 81 Mg Tablet.dr, 81 TAB PO HS for rx, #30 Ref 3 (Reported) Entered as Reported by: JARRELL WEIR on 04/11/201127 Last Taken: Unknown Dose on 04/10/20 Last Action: Edited on 04/11/201531 by Madhav Giraldo Atorvastatin Calcium (Atorvastatin Calcium) 40 Mg Tablet, 40 MG PO HS for FOR CHOLESTEROL, #30 Ref 0 (Reported) Entered as Reported by: Madhav Giraldo on 04/11/201531 Last Taken: 40 on Unknown Date & Time Last Action: Continued on 04/11/201540 by Madhav Giraldo Carvedilol (Carvedilol ) 3.125 Mg Tablet, 3.125 MG PO BIDWMEALS for CARDIAC, (Reported) Entered as Reported by: JARRELL WEIR on 04/11/201127 Last Taken: Unknown Dose on 04/10/20 Last Action: Continued on 04/11/201540 by Madhav Giraldo Furosemide (Furosemide) 40 Mg Tablet, 20 MG PO DAILY for CHF for 30 Days, #15 Prescribed by: MARGARET WONG on 11/21/191115 Last Taken: Unknown Dose on 04/10/20 Last Action: Continued on 04/11/201540 by Madhav Giraldo Metformin Hcl (Metformin Hcl) 1,000 Mg Tablet, 1,000 MG PO BID for ANTI- DIABETIC, Ref 0 (Reported) Entered as Reported by: IRVING LEONARDO on 11/19/192302 Last Taken: Unknown Dose on 04/10/20 Last Action: Last Taken Edited on 04/11/201125 by JARRELL WEIR Sacubitril/Valsartan (Entresto 24 mg-26 mg Tablet) 1 Each Tablet, 1 TAB PO BID for NICM for 30 Days, #60 Ref 0 Prescribed by: MARGARET WONG on 11/21/191115 Last Taken: Unknown Dose on 04/10/20 Last Action: Continued on 04/11/201540 by Madhav Giraldo Sitagliptin Phosphate (Januvia) 50 Mg Tablet, 1 TAB PO DAILY for Diabetes, #30 Ref 5 (Reported) Entered as Reported by: IRVING LEONARDO on 11/19/192302 Last Taken: Unknown Dose on 04/10/20 Last Action: Last Taken Edited on 04/11/201125 by JARRELL WEIR Tamsulosin Hcl (Flomax) 0.4 Mg Cap.er.24h, 1 CAP PO HS for Prostate, #30 Ref 11 (Reported) Entered as Reported by: IRVING LEONARDO on 11/19/192302 Last Taken: Unknown Dose on 04/10/20 Last Action: Continued on 04/11/201540 by Madhav Giraldo Patient Instructions Patient Instructions Routine post device implant Tatian was discussed with the patient. We will call him in 2 days to arrange a wound check visit. Justicifation of Admission Dx: Justifications for Admission: Justification of Admission Dx: Yes CHF: Cardiac Arrhythmias NIRANJAN RICHARD MD Apr 12, 2020 14:26
== END 2020-04-12 13:45 | disposition home or self-care (01) ==
LOC: SURG 10:12 → 2 SOUTH 10:30
PROVIDERS: ADMIT Internal Medicine Cardiovascular Disease; ATTEND Internal Medicine Cardiovascular Disease
DX: I25.5 Ischemic cardiomyopathy (principal); I11.0 Hypertensive heart disease with heart failure; I50.22 Chronic systolic (congestive) heart failure; I49.9 Cardiac arrhythmia, unspecified; Z79.899 Other long term (current) drug therapy
CPT/HCPCS: 33208; 33225; 36415; 71045; 71046; 80048; 82962; 85027; 85610; 93005; 93641; 96365; 96366; C1769; C1882; C1895; C1898; C1900; G0378; G0379; J0690; J2250; J3010; J3490; J7050; Q9967; 33231; 33249; J7030

== ENCOUNTER → 2021-05-12 | Outpatient (CLI) | payer MEDICARE ==
[~2021-05-12] MED LIST changes: +AMIO200T53 PO; +ASPI-886 PO; +CARV3.1210 PO; -HYDROmorphone 2 MG/ML VIAL IV PRN; -IV RINGERS,LACTATED 1000ML 1,000 ML IV SCH; -LISI1TAB20 PO; +LISI1TAB39 PO; -MORPHINE SULFATE 2 MG/ML VIAL. IV PRN; -ONDANSETRON PF 4 MG/2 ML VIAL. IV PRN; +POTA-112 PO; +POTA-116 PO; -POTA10TA12 PO; -POTA10TA6 PO; -PROCHLORPERAZINE 10 MG/2 ML VIAL. IV PRN; -fentaNYL PF VIAL 100 MCG/2 ML VIAL IV PRN
--- NOTE | 2021-05-12 17:54 | CARD ---
MR#: [id number] Date of Study: 05/12/2021 Ordering Physician: PADMINI CORDOVA, Referring Physician: PADMINI CORDOVA Tech: Jennie Melo [facility] APPROVED REPORT EXAM: Two-dimensional and M-mode echocardiogram with Doppler and color Doppler. Other Information Quality : Technically LimitedHR: 65bpm Rhythm : NSR INDICATION Hypertension/HCVD Cardiac Disease: CAD RISK FACTORS Hypertension Hyperlipidemia 2D DIMENSIONS RVDd3.5 (2.9-3.5cm)Left Atrium(2D)4.7 (1.6-4.0cm) IVSd1.3 (0.7-1.1cm)Aortic Root(2D)4.5 (2.0-3.7cm) LVDd4.7 (3.9-5.9cm)LVOT Diameter2.5 (1.8-2.4cm) PWd1.2 (0.7-1.1cm)LVDs2.4 (2.5-4.0cm) FS (%) 48.8 %SV81.1 ml Aortic Valve AoV Peak Cristian.129.8cm/sAoV VTI24.3cm AO Peak GR.6.7mmHgLVOT Peak Cristian.91.8cm/s AO Mean GR.3mmHgAVA (VMAX)3.54cm2 Mitral Valve MV E Lvnkginy42.2cm/sMV DECEL PVOV574uf MV A Gyjdzcvk40.8cm/sE/A Ratio0.7 Pulmonary Valve PV Peak Qyhqgwej70.0cm/s Tricuspid Valve TR P. Voqvicgz391cn/sTR Peak Gr.24mmHg LEFT VENTRICLE The left ventricle is normal size. There is mild concentric left ventricular hypertrophy. The left ve ntricular systolic function is normal and the ejection fraction is within normal range. LV ejection fraction of 50-55%. There is normal LV segmental wall motion. Transmitral Doppler flow pattern is Gr hollie I-abnormal relaxation pattern. RIGHT VENTRICLE The right ventricle is normal size. There is normal right ventricular wall thickness. The right ventr icular systolic function is normal. ATRIA The left atrium size is normal. The right atrium size is normal. The interatrial septum is intact wit h no evidence for an atrial septal defect or patent foramen ovale as noted on 2-D or Doppler imaging. AORTIC VALVE The aortic valve is normal in structure and function. Doppler and Color Flow revealed mild aortic reg urgitation. There is no significant aortic valvular stenosis. MITRAL VALVE The mitral valve is normal in structure and function. There is no evidence of mitral valve prolapse. There is no mitral valve stenosis. Doppler and Color-flow revealed mild mitral regurgitation. TRICUSPID VALVE The tricuspid valve is normal in structure and function. Doppler and Color Flow revealed mild tricusp id regurgitation. Estimated PAP 30 mmHg. There is no tricuspid valve stenosis. PULMONIC VALVE The pulmonary valve is normal in structure and function. Doppler and Color Flow revealed moderate pul pura valvular regurgitation. GREAT VESSELS The aortic root is moderately enlarged. The ascending aorta is mldly dilated. The IVC is normal in si ze and collapses >50% with inspiration. PERICARDIAL EFFUSION There is no evidence of significant pericardial effusion. Critical Notification Critical Value: No <Conclusion> The left ventricle is normal size. The left ventricular systolic function is normal and the ejection fraction is within normal range. LV ejection fraction of 50-55%. There is mild concentric left ventricular hypertrophy. Doppler and Color Flow revealed mild aortic regurgitation. There is no significant aortic valvular stenosis. Doppler and Color-flow revealed mild mitral regurgitation. Doppler and Color Flow revealed mild tricuspid regurgitation. Estimated PAP 30 mmHg. The aortic root is moderately enlarged. Signed by : Reed Fang MD Electronically Approved : 05/12/2021 17:54:07
== END ==
LOC: ECHO 09:32
PROVIDERS: ATTEND Internal Medicine Cardiovascular Disease
DX: I08.8 Other rheumatic multiple valve diseases (principal); I42.9 Cardiomyopathy, unspecified
CPT/HCPCS: 93306